=== PATIENT | female | born 1945 | race Caucasian/White ===

== ENCOUNTER 2017-11-23 13:52 | Outpatient (CLI) | payer OTHER ==
[~2017-11-23 13:52] MED LIST: CEFTIN250 MG PO; URIN D.S. TABLE1 TAB PO
== END 2017-11-23 13:57 | disposition home or self-care (01) ==
LOC: SONOGRAMA 13:52
DX: N63.13 Unspecified lump in the right breast, lower outer quadrant (principal); N60.11 Diffuse cystic mastopathy of right breast; N60.12 Diffuse cystic mastopathy of left breast

== ENCOUNTER 2017-12-01 13:57 | Outpatient (CLI) | payer OTHER | END 2017-12-01 14:14 | disposition home or self-care (01) | LOC: LAB 13:57 | DX: N60.11 Diffuse cystic mastopathy of right breast (principal); N60.12 Diffuse cystic mastopathy of left breast; Z80.3 Family history of malignant neoplasm of breast ==

== ENCOUNTER 2018-05-12 09:05 | Emergency (ER) | payer OTHER ==
[~2018-05-12] VITALS: Ht 160 cm; Wt 61.2 kg
== END 2018-05-12 12:41 | disposition home or self-care (01) ==
LOC: ER 09:05
DX: G89.11 Acute pain due to trauma (principal); M54.5 Low back pain; M79.675 Pain in left toe(s); M25.561 Pain in right knee

== ENCOUNTER 2018-05-17 14:07 | Outpatient (CLI) | payer OTHER | END 2018-05-17 14:23 | disposition home or self-care (01) | LOC: LAB 14:07 | DX: I10 Essential (primary) hypertension (principal); E11.9 Type 2 diabetes mellitus without complications; E03.8 Other specified hypothyroidism; E78.2 Mixed hyperlipidemia ==

== ENCOUNTER 2018-05-27 15:28 | Outpatient (CLI) | payer OTHER | END 2018-05-27 15:32 | disposition home or self-care (01) | LOC: LAB 15:28 | DX: N39.0 Urinary tract infection, site not specified (principal); R82.79 Other abnormal findings on microbiological examination of urine ==

== ENCOUNTER 2018-06-24 10:46 | Outpatient (CLI) | payer OTHER | END 2018-06-24 11:00 | disposition home or self-care (01) | LOC: NUCLEAR 10:46 | DX: M81.0 Age-related osteoporosis without current pathological fracture (principal) ==

== ENCOUNTER 2018-06-24 12:27 | Outpatient (CLI) | payer OTHER | END 2018-06-24 12:33 | disposition home or self-care (01) | LOC: RAD 12:27 | DX: M19.021 Primary osteoarthritis, right elbow (principal); M19.022 Primary osteoarthritis, left elbow ==

== ENCOUNTER 2018-11-04 15:01 | Outpatient (CLI) | payer OTHER | END 2018-11-04 15:05 | disposition home or self-care (01) | LOC: MAMO-SONO 15:01 | DX: Z12.31 Encounter for screening mammogram for malignant neoplasm of breast (principal); Z87.898 Personal history of other specified conditions; N62 Hypertrophy of breast; R10.9 Unspecified abdominal pain; M12.9 Arthropathy, unspecified; M19.90 Unspecified osteoarthritis, unspecified site ==

== ENCOUNTER 2018-11-04 18:19 | Outpatient (CLI) | payer OTHER | END 2018-11-04 18:24 | disposition home or self-care (01) | LOC: LAB 18:19 | DX: I10 Essential (primary) hypertension (principal); E11.9 Type 2 diabetes mellitus without complications; E03.8 Other specified hypothyroidism; E78.2 Mixed hyperlipidemia; K92.1 Melena; D64.0 Hereditary sideroblastic anemia; M81.0 Age-related osteoporosis without current pathological fracture ==

== ENCOUNTER 2018-11-05 15:32 | Outpatient (CLI) | payer OTHER | END 2018-11-05 15:49 | disposition home or self-care (01) | LOC: LAB 15:32 | DX: I10 Essential (primary) hypertension (principal); E11.9 Type 2 diabetes mellitus without complications; E03.8 Other specified hypothyroidism; E78.2 Mixed hyperlipidemia; K92.1 Melena; D64.0 Hereditary sideroblastic anemia; M81.0 Age-related osteoporosis without current pathological fracture ==

== ENCOUNTER 2019-05-02 15:26 | Emergency (ER) | payer OTHER ==
[~2019-05-02] VITALS: Ht 157.5 cm; Wt 104.3 kg
== END 2019-05-02 19:43 | disposition home or self-care (01) ==
LOC: ER 15:26
DX: R42 Dizziness and giddiness (principal)

== ENCOUNTER 2019-05-04 14:12 | Outpatient (CLI) | payer OTHER | END 2019-05-04 14:20 | disposition home or self-care (01) | LOC: RAD 14:12 | DX: M54.5 Low back pain (principal); M25.551 Pain in right hip; M25.552 Pain in left hip; M25.561 Pain in right knee ==

== ENCOUNTER 2019-06-08 09:35 | Outpatient (CLI) | payer OTHER | END 2019-06-08 09:39 | disposition home or self-care (01) | LOC: LAB 09:35 | DX: N18.9 Chronic kidney disease, unspecified (principal) ==

== ENCOUNTER 2019-07-29 05:02 | Day surgery (SDC) | payer OTHER | END 2019-07-29 17:41 | disposition home or self-care (01) | LOC: CIR.AMB 05:02 | DX: D05.11 Intraductal carcinoma in situ of right breast (principal) ==

== ENCOUNTER 2019-08-30 12:44 | Emergency (ER) | payer OTHER ==
[~2019-08-30] VITALS: Ht 162.6 cm; Wt 104.3 kg
== END 2019-08-30 21:36 | disposition home or self-care (01) ==
LOC: ER 12:44
DX: K52.89 Other specified noninfective gastroenteritis and colitis (principal)

== ENCOUNTER 2019-11-28 10:01 | Outpatient (CLI) | payer OTHER | END 2019-11-28 10:25 | disposition home or self-care (01) | LOC: NUCLEAR 10:01 | DX: C50.411 Malignant neoplasm of upper-outer quadrant of right female breast (principal); Z17.0 Estrogen receptor positive status [ER+] | CPT/HCPCS: 78816; A9552 ==

== ENCOUNTER 2019-12-30 10:59 | Outpatient (CLI) | payer OTHER | END 2019-12-30 11:06 | disposition home or self-care (01) | LOC: MRI 10:59 | DX: D25.9 Leiomyoma of uterus, unspecified (principal); C50.919 Malignant neoplasm of unspecified site of unspecified female breast | CPT/HCPCS: 72195 ==

== ENCOUNTER 2019-12-30 12:46 | Outpatient (CLI) | payer OTHER | END 2019-12-30 12:56 | disposition home or self-care (01) | LOC: LAB 12:46 | DX: D64.89 Other specified anemias (principal); Z12.11 Encounter for screening for malignant neoplasm of colon; E03.8 Other specified hypothyroidism; N95.1 Menopausal and female climacteric states; I10 Essential (primary) hypertension; C51.9 Malignant neoplasm of vulva, unspecified; A64 Unspecified sexually transmitted disease; N39.0 Urinary tract infection, site not specified; R97.8 Other abnormal tumor markers; R79.89 Other specified abnormal findings of blood chemistry; E55.9 Vitamin D deficiency, unspecified; C50.919 Malignant neoplasm of unspecified site of unspecified female breast ==

== ENCOUNTER 2020-07-31 08:27 | Outpatient (CLI) | payer OTHER | END 2020-07-31 08:29 | disposition home or self-care (01) | LOC: TOM 08:27 | PROVIDERS: ATTEND Internal Medicine Cardiovascular Disease | DX: N85.2 Hypertrophy of uterus (principal); K57.90 Diverticulosis of intestine, part unspecified, without perforation or abscess without bleeding; R10.84 Generalized abdominal pain ==

== ENCOUNTER → 2020-08-13 09:00 | Outpatient (CLI) | payer OTHER | END | disposition home or self-care (01) | LOC: LAB | PROVIDERS: ATTEND Internal Medicine Cardiovascular Disease | DX: I10 Essential (primary) hypertension (principal); E11.9 Type 2 diabetes mellitus without complications; E03.8 Other specified hypothyroidism; E78.2 Mixed hyperlipidemia; Z12.11 Encounter for screening for malignant neoplasm of colon; E55.9 Vitamin D deficiency, unspecified ==

== ENCOUNTER → 2020-08-13 | Outpatient (CLI) | payer OTHER | END | disposition home or self-care (01) | LOC: MAMO-SONO 08-06 09:15 | PROVIDERS: ATTEND Internal Medicine Cardiovascular Disease | DX: Z12.31 Encounter for screening mammogram for malignant neoplasm of breast (principal); N64.59 Other signs and symptoms in breast ==

== ENCOUNTER → 2020-08-13 | Outpatient (CLI) | payer OTHER | END | disposition home or self-care (01) | LOC: NUCLEAR 10:42 | PROVIDERS: ATTEND Internal Medicine Cardiovascular Disease | DX: M81.0 Age-related osteoporosis without current pathological fracture (principal) ==

== ENCOUNTER 2020-12-21 09:10 | Outpatient (CLI) | payer OTHER | END 2020-12-21 09:15 | disposition home or self-care (01) | LOC: LAB 09:10 | PROVIDERS: ATTEND Internal Medicine Hematology & Oncology | DX: D64.89 Other specified anemias (principal); R74.01 Elevation of levels of liver transaminase levels; E78.00 Pure hypercholesterolemia, unspecified; C50.411 Malignant neoplasm of upper-outer quadrant of right female breast ==

== ENCOUNTER → 2020-12-21 | Outpatient (CLI) | payer OTHER | END | disposition home or self-care (01) | LOC: PPH VACUNA 15:00 | PROVIDERS: ATTEND Emergency Medicine Pediatric Emergency Medicine | DX: Z23 Encounter for immunization (principal) ==

== ENCOUNTER 2021-01-11 12:22 | Outpatient (CLI) | payer OTHER | END 2021-01-11 12:56 | disposition home or self-care (01) | LOC: LAB 12:22 | DX: I10 Essential (primary) hypertension (principal); E78.49 Other hyperlipidemia; E03.8 Other specified hypothyroidism; N30.00 Acute cystitis without hematuria; E83.51 Hypocalcemia; Z12.11 Encounter for screening for malignant neoplasm of colon; E06.3 Autoimmune thyroiditis; N95.8 Other specified menopausal and perimenopausal disorders; R97.8 Other abnormal tumor markers; Z11.3 Encounter for screening for infections with a predominantly sexual mode of transmission; A60.04 Herpesviral vulvovaginitis; R74.8 Abnormal levels of other serum enzymes; E22.1 Hyperprolactinemia; E28.2 Polycystic ovarian syndrome ==

== ENCOUNTER 2021-01-28 13:03 | Outpatient (CLI) | payer OTHER | END 2021-01-28 13:08 | disposition home or self-care (01) | LOC: RAD 13:03 | PROVIDERS: ATTEND Orthopaedic Surgery | DX: M25.562 Pain in left knee (principal); M25.561 Pain in right knee; M25.551 Pain in right hip; M25.552 Pain in left hip ==

== ENCOUNTER → 2021-04-25 08:00 | Outpatient (CLI) | payer OTHER ==
[~2021-04-25 08:00] MED LIST changes: +FEMARA2.5 MG
== END | disposition home or self-care (01) ==
LOC: LAB 04-10 07:53
PROVIDERS: ATTEND Internal Medicine Cardiovascular Disease
DX: E03.8 Other specified hypothyroidism (principal); I10 Essential (primary) hypertension; E11.9 Type 2 diabetes mellitus without complications; E78.2 Mixed hyperlipidemia; Z12.11 Encounter for screening for malignant neoplasm of colon; E55.9 Vitamin D deficiency, unspecified

== ENCOUNTER 2021-04-25 08:21 | Outpatient (CLI) | payer OTHER ==
[~2021-04-25 08:21] MED LIST changes: -FEMARA2.5 MG
== END 2021-04-25 08:28 | disposition home or self-care (01) ==
LOC: TOM 08:21
PROVIDERS: ATTEND Internal Medicine Cardiovascular Disease
DX: R41.2 Retrograde amnesia (principal); I63.50 Cerebral infarction due to unspecified occlusion or stenosis of unspecified cerebral artery

== ENCOUNTER 2021-06-27 07:50 | Emergency (ER) | payer OTHER ==
[~2021-06-27] VITALS: Ht 162.6 cm; Wt 104.3 kg
[2021-06-27] MEDS ORDERED: FEMARA2.5 MG (08:06)
== END 2021-06-27 14:46 | disposition home or self-care (01) ==
LOC: ER 07:50
DX: N13.2 Hydronephrosis with renal and ureteral calculous obstruction (principal); R10.32 Left lower quadrant pain; R10.12 Left upper quadrant pain

== ENCOUNTER 2021-11-01 09:18 | Outpatient (CLI) | payer OTHER ==
[~2021-11-01 09:18] MED LIST changes: +FEMARA2.5 MG
== END 2021-11-01 09:19 | disposition home or self-care (01) ==
LOC: LAB 09:18
PROVIDERS: ATTEND Internal Medicine Hematology & Oncology
DX: D64.89 Other specified anemias (principal); C50.411 Malignant neoplasm of upper-outer quadrant of right female breast; E78.89 Other lipoprotein metabolism disorders; M85.80 Other specified disorders of bone density and structure, unspecified site

== ENCOUNTER 2021-11-26 09:26 | Outpatient (CLI) | payer OTHER | END 2021-11-26 09:40 | disposition home or self-care (01) | LOC: MAMO-SONO 09:26 | PROVIDERS: ATTEND Internal Medicine Hematology & Oncology | DX: C50.411 Malignant neoplasm of upper-outer quadrant of right female breast (principal); Z17.0 Estrogen receptor positive status [ER+]; Z85.3 Personal history of malignant neoplasm of breast; Z12.31 Encounter for screening mammogram for malignant neoplasm of breast ==

== ENCOUNTER 2022-01-14 14:22 | Outpatient (CLI) | payer OTHER | END 2022-01-14 14:28 | disposition home or self-care (01) | LOC: LAB 14:22 | PROVIDERS: ATTEND Radiology Diagnostic Radiology | DX: R10.9 Unspecified abdominal pain (principal) ==

== ENCOUNTER 2022-02-03 08:46 | Outpatient (CLI) | payer OTHER | END 2022-02-03 08:49 | disposition home or self-care (01) | LOC: TOM 08:46 | PROVIDERS: ATTEND Internal Medicine Cardiovascular Disease | DX: R10.9 Unspecified abdominal pain (principal) | CPT/HCPCS: 74177; Q9965 ==

== ENCOUNTER 2022-02-03 12:13 | Outpatient (CLI) | payer OTHER | END 2022-02-03 12:14 | disposition home or self-care (01) | LOC: LAB 12:13 | PROVIDERS: ATTEND Internal Medicine Cardiovascular Disease | DX: I10 Essential (primary) hypertension (principal); E11.9 Type 2 diabetes mellitus without complications; E03.9 Hypothyroidism, unspecified; E78.2 Mixed hyperlipidemia; Z12.11 Encounter for screening for malignant neoplasm of colon; E55.9 Vitamin D deficiency, unspecified ==

== ENCOUNTER 2022-02-05 08:50 | Outpatient (CLI) | payer OTHER | END 2022-02-05 08:53 | disposition home or self-care (01) | LOC: LAB 08:50 | PROVIDERS: ATTEND Internal Medicine Cardiovascular Disease | DX: E11.9 Type 2 diabetes mellitus without complications (principal); I10 Essential (primary) hypertension; E03.9 Hypothyroidism, unspecified; E78.2 Mixed hyperlipidemia; Z12.11 Encounter for screening for malignant neoplasm of colon; E55.9 Vitamin D deficiency, unspecified ==

== ENCOUNTER 2022-02-24 10:14 | Outpatient (CLI) | payer OTHER | END 2022-02-24 10:21 | disposition home or self-care (01) | LOC: LAB 10:14 | PROVIDERS: ATTEND Internal Medicine Cardiovascular Disease | DX: C34.10 Malignant neoplasm of upper lobe, unspecified bronchus or lung (principal); D49.59 Neoplasm of unspecified behavior of other genitourinary organ ==

== ENCOUNTER 2022-08-12 11:15 | Emergency (ER) | payer OTHER ==
[~2022-08-12] VITALS: Ht 162.6 cm; Wt 97.5 kg
[2022-08-12] MEDS ORDERED: COZAAR25 MG (11:37)
== END 2022-08-12 17:40 | disposition home or self-care (01) ==
LOC: ER 11:15
DX: S42.302A Unspecified fracture of shaft of humerus, left arm, initial encounter for closed fracture (principal); W18.30XA Fall on same level, unspecified, initial encounter; Y93.9 Activity, unspecified; Y92.239 Unspecified place in hospital as the place of occurrence of the external cause

== ENCOUNTER 2022-09-04 08:58 | Outpatient (CLI) | payer OTHER ==
[~2022-09-04 08:58] MED LIST changes: +COZAAR25 MG
== END 2022-09-04 09:10 | disposition home or self-care (01) ==
LOC: RAD 08:58
PROVIDERS: ATTEND Orthopaedic Surgery
DX: S42.222A 2-part displaced fracture of surgical neck of left humerus, initial encounter for closed fracture (principal); M25.561 Pain in right knee; M25.562 Pain in left knee

== ENCOUNTER → 2023-06-03 07:56 | Outpatient (CLI) | payer OTHER | END | disposition home or self-care (01) | LOC: LAB 07:56 | PROVIDERS: ATTEND Obstetrics & Gynecology Obstetrics | DX: N80.30 Endometriosis of pelvic peritoneum, unspecified (principal); I10 Essential (primary) hypertension; E03.9 Hypothyroidism, unspecified; E78.2 Mixed hyperlipidemia; N95.1 Menopausal and female climacteric states; N92.6 Irregular menstruation, unspecified; E55.9 Vitamin D deficiency, unspecified; Z01.818 Encounter for other preprocedural examination ==

== ENCOUNTER → 2023-06-30 09:15 | Outpatient (CLI) | payer OTHER | END | disposition home or self-care (01) | LOC: LAB 09:15 | PROVIDERS: ATTEND Internal Medicine Cardiovascular Disease | DX: E03.9 Hypothyroidism, unspecified (principal); E78.2 Mixed hyperlipidemia; I10 Essential (primary) hypertension; E11.9 Type 2 diabetes mellitus without complications; Z12.11 Encounter for screening for malignant neoplasm of colon ==

== ENCOUNTER → 2023-07-01 09:33 | Outpatient (CLI) | payer OTHER | END | disposition home or self-care (01) | LOC: LAB 09:33 | PROVIDERS: ATTEND Internal Medicine Cardiovascular Disease | DX: I10 Essential (primary) hypertension (principal); E11.9 Type 2 diabetes mellitus without complications; E03.9 Hypothyroidism, unspecified; E78.2 Mixed hyperlipidemia; Z12.11 Encounter for screening for malignant neoplasm of colon ==

== ENCOUNTER 2023-07-27 18:25 | Emergency (ER) | payer OTHER ==
[~2023-07-27] VITALS: Ht 162.6 cm; Wt 99.8 kg
[2023-07-27 19:46] LABS: HEMATOCRIT 31.1 % (36.0-45.00); HEMOGLOBIN 10.3 g/dL (12.0-15.00); MEAN CORPUSCULAR HEMOGLOBIN 29.8 pg (27.00-32.0); MEAN CORPUSCULAR HGB CONC 33.1 g/dl (32.0-36.0); PLATELET COUNT 333 K/uL (150-450); RED BLOOD COUNT 3.46 M/uL (4.00-6.00); RED CELL DISTRIBUTION WIDTH 13.6 % (11.5-14.5)
[2023-07-27] MEDS ORDERED: MUPIROCIN15 GM TOP (20:26)
== END 2023-07-27 21:12 | disposition home or self-care (01) ==
LOC: ER 18:25
PROVIDERS: Nurse Practitioner Family
DX: N63.10 Unspecified lump in the right breast, unspecified quadrant (principal); Z85.3 Personal history of malignant neoplasm of breast; I10 Essential (primary) hypertension

== ENCOUNTER 2024-01-21 20:39 | Emergency (ER) | payer OTHER ==
[~2024-01-21] VITALS: Ht 172.7 cm; Wt 95.3 kg
[~2024-01-21 20:39] MED LIST changes: +MUPIROCIN15 GM TOP
== END 2024-01-21 21:56 | disposition home or self-care (01) ==
LOC: ER 20:39
DX: S20.01XA Contusion of right breast, initial encounter (principal); X58.XXXA Exposure to other specified factors, initial encounter; Y93.9 Activity, unspecified; Y92.89 Other specified places as the place of occurrence of the external cause; Y99.9 Unspecified external cause status; Z85.3 Personal history of malignant neoplasm of breast

== ENCOUNTER 2024-04-08 12:01 | Inpatient (IN) | payer OTHER ==
[~2024-04-08] VITALS: Ht 121.9 cm; Wt 70.3 kg
[2024-04-08] MEDS ORDERED: 0.9 % SODIUM CHLORIDE 1,000 ML IV STA (13:35)
[2024-04-08] MEDS ORDERED: MEPERIDINE HCL/PF 50 MG/ML VIAL IM STA (13:36)
[2024-04-08] MEDS ORDERED: PROMETHAZINE HCL 50 MG/ML AMPUL IM STA (13:37)
[2024-04-08 14:37] LABS: MEAN CELL VOLUME 82.9 fL (80.00-100.00); MEAN CORPUSCULAR HGB CONC 33.2 g/dl (32.0-36.0); RED BLOOD COUNT 2.43 M/uL (4.00-6.00); RED CELL DISTRIBUTION WIDTH 15.5 % (11.5-14.5)
[2024-04-08 14:39] LABS: HEMATOCRIT 20.1 % (36.0-45.00); HEMOGLOBIN 6.7 g/dL (12.0-15.00); MEAN CORPUSCULAR HEMOGLOBIN 27.5 pg (27.00-32.0)
[2024-04-08 14:40] LABS: PLATELET COUNT 481 K/uL (150-450)
[2024-04-08 14:52] LABS: ALBUMIN 3.3 gm/dL (3.4-5.0); ALKALINE PHOSPHATASE 65 U/L (50-136); ALT/SGPT 17 U/L (12-78); ANION GAP 7 (10.0-20.0); AST/SGOT 42 U/L (15-37); BILIRUBIN TOTAL 0.39 mg/dL (0.3-1.2); BLOOD UREA NITROGEN 16 mg/dL (7-18); BUN CREA RATIO 19 (7.0-25.0); CALCIUM 9.1 mg/dL (8.5-10.1); CARBON DIOXIDE 27 mEq/L (21-32); CHLORIDE 109 mmol/L (98-107); CREATININE SERUM 0.85 mg/dL (0.55-1.02); GFR 64.85; GLUCOSE FASTING 92 mg/dL (65-100); OSMOLALITY SERUM 278 MOSM/KG (275-295); POTASSIUM 4.34 mEq/L (3.5-5.1); SODIUM 139 mmol/L (136-145); TOTAL PROTEIN 7.3 gm/dL (6.4-8.2)
[2024-04-08 15:06] LABS: BILIRUBIN,CONJUGATED < 0.10 mg/dL (0.0-0.2); BILIRUBIN,UNCONJUGATED 0.29 mg/dL (0.0-0.6)
[2024-04-08] MEDS ORDERED: ACETAMINOPHEN 500 MG GEL..CAP PO PRN (17:45)
[2024-04-08] MEDS ORDERED: CEFTRIAXONE SODIUM 2,000 MG in 0.9 % SODIUM CHLORIDE 100 ML IV SCH (17:45)
[2024-04-08] MEDS ORDERED: ORPHENADRINE CITRATE 30 MG/ML AMPUL IM ONE (17:45)
[2024-04-08] MEDS ORDERED: 0.9 % SODIUM CHLORIDE 1,000 ML IV SCH (17:45)
[2024-04-08] MEDS ORDERED: GABAPENTIN 300 MG CAPSULE PO SCH (17:57)
[2024-04-08] MEDS ORDERED: ONDANSETRON HCL 4 MG in 0.9 % SODIUM CHLORIDE 50 ML IV PRN (18:00)
[2024-04-08 19:39] LABS: INR 0.99; PARTIAL THROMBOPLASTIN TIME 21.1 SECONDS (22.0-34.0); PROTHROMBIN TIME 10.4 SECONDS (9.0-11.5)
[2024-04-09] MEDS ORDERED: LOSARTAN POTASSIUM 25 MG TABLET PO SCH (09:00)
[2024-04-09] MEDS ORDERED: FAMOTIDINE/PF 20 MG in 0.9 % SODIUM CHLORIDE 8 ML IV PUSH SCH (09:00)
[2024-04-09 09:23] LABS: URINE APPEARANCE Cloudy; URINE BILIRRUBIN Negative (NEGATIVE); URINE BLOOD Negative; URINE COLOR Yellow; URINE GLUCOSE Negative (NEGATIVE); URINE LEUKOCYTE Small; URINE NITRATE Negative; URINE PROTEIN Negative (NEGATIVE); URINE UROBILINOGEN 0.2 E.U./dl
[2024-04-09 09:29] LABS: URINE EPITHELIAL CELLS 104.6 uL (0.0-38.8)
[2024-04-09 10:59] LABS: URINE EPITHELIAL CELLS 0-4 /HPF
[2024-04-11 06:44] LABS: HEMATOCRIT 28.8 % (36.0-45.00); MEAN CORPUSCULAR HGB CONC 33.9 g/dl (32.0-36.0); PLATELET COUNT 361 K/uL (150-450); RED BLOOD COUNT 3.47 M/uL (4.00-6.00); RED CELL DISTRIBUTION WIDTH 15.3 % (11.5-14.5)
[2024-04-11 06:47] LABS: MEAN CORPUSCULAR HEMOGLOBIN 28.2 pg (27.00-32.0)
[2024-04-11 06:48] LABS: HEMOGLOBIN 9.8 g/dL (12.0-15.00)
[2024-04-11] MEDS ORDERED: FAMOtidine 20 MG TABLET PO SCH (21:00)
[2024-04-12] MEDS ORDERED: KETOROLAC TROMETHAMINE 30 MG VIAL IM PRN (08:15)
[2024-04-12] MEDS ORDERED: KETOROLAC TROMETHAMINE 30 MG VIAL IM STA (09:11)
[2024-04-12] MEDS ORDERED: TRAMADOL HCL 50 MG TABLET PO SCH (21:00)
[2024-04-13 06:56] LABS: HEMATOCRIT 26.3 % (36.0-45.00); MEAN CELL VOLUME 83.4 fL (80.00-100.00); MEAN CORPUSCULAR HGB CONC 33.9 g/dl (32.0-36.0); PLATELET COUNT 304 K/uL (150-450); RED BLOOD COUNT 3.15 M/uL (4.00-6.00); RED CELL DISTRIBUTION WIDTH 15.2 % (11.5-14.5)
[2024-04-13 07:06] LABS: HEMOGLOBIN 8.9 g/dL (12.0-15.00); MEAN CORPUSCULAR HEMOGLOBIN 28.2 pg (27.00-32.0)
[2024-04-13] MEDS ORDERED: IRON/V.C/V.B12/FOLIC A/VIT. E 1 CAPL CAPLET PO SCH (09:00)
== END 2024-04-13 14:52 | disposition home or self-care (01) | DRG 598 ==
LOC: ER 12:01 → SURG 18:04 → SEC-K 18:04 → MEDJ 18:47 → SEC-K 20:10 → MEDJ 04-09 00:29 → SEC-K 04-09 00:52 → MEDJ 04-09 00:58 → SURG 04-09 01:15
PROVIDERS: General Practice; ADMIT Internal Medicine; ATTEND Internal Medicine
PROC: 30233N1 Transfusion of Nonautologous Red Blood Cells into Peripheral Vein, Percutaneous Approach (ICD-10-PCS; principal; 2024-04-08)
PROC: BW21ZZZ Computerized Tomography (CT Scan) of Abdomen and Pelvis (ICD-10-PCS; 2024-04-08)
PROC: BW24ZZZ Computerized Tomography (CT Scan) of Chest and Abdomen (ICD-10-PCS; 2024-04-08)
PROC: BR39YZZ Magnetic Resonance Imaging (MRI) of Lumbar Spine using Other Contrast (ICD-10-PCS; 2024-04-11)
PROC: BR37ZZZ Magnetic Resonance Imaging (MRI) of Thoracic Spine (ICD-10-PCS; 2024-04-11)
DX: C50.911 Malignant neoplasm of unspecified site of right female breast (principal); C77.3 Secondary and unspecified malignant neoplasm of axilla and upper limb lymph nodes; D62 Acute posthemorrhagic anemia; G89.3 Neoplasm related pain (acute) (chronic); K44.9 Diaphragmatic hernia without obstruction or gangrene; E78.5 Hyperlipidemia, unspecified; I10 Essential (primary) hypertension; D63.0 Anemia in neoplastic disease; B96.5 Pseudomonas (aeruginosa) (mallei) (pseudomallei) as the cause of diseases classified elsewhere; B95.61 Methicillin susceptible Staphylococcus aureus infection as the cause of diseases classified elsewhere
CPT/HCPCS: 72147; 72149

== ENCOUNTER 2024-05-10 12:12 | Outpatient (CLI) | payer OTHER ==
[2024-05-12 09:13] LABS: CA 15-3 14.9 U/mL (0.0-25.0); CA 27.29 17.2 U/mL (0.0-38.6)
== END 2024-05-10 12:15 | disposition home or self-care (01) ==
LOC: LAB 12:12
PROVIDERS: ATTEND Internal Medicine Hematology & Oncology
DX: C50.811 Malignant neoplasm of overlapping sites of right female breast (principal); Z17.0 Estrogen receptor positive status [ER+]

== ENCOUNTER 2024-07-20 22:10 | Inpatient (IN) | payer OTHER ==
[~2024-07-20] VITALS: Ht 162.6 cm; Wt 68.0 kg
[2024-07-20] MEDS ORDERED: LOSARTAN-HCTZ1 EACH PO (22:23)
[2024-07-20] MEDS ORDERED: PANTOPRAZOLE SODIUM 40 MG/VIAL VIAL IV SCH (22:29)
[2024-07-20] MEDS ORDERED: ONDANSETRON HCL 4 MG in 0.9 % SODIUM CHLORIDE 50 ML IV PRN (22:30)
[2024-07-20] MEDS ORDERED: 0.9 % SODIUM CHLORIDE 1,000 ML IV SCH ×2 (22:30)
[2024-07-20] MEDS ORDERED: ACETAMINOPHEN 500 MG GEL..CAP PO PRN (22:30)
[2024-07-20] MEDS ORDERED: FUROsemide 20 MG/2 ML VIAL IV SCH (22:30)
[2024-07-20 23:19] LABS: HEMATOCRIT 23.9 % (36.0-45.00); MEAN CELL VOLUME 80.8 fL (80.00-100.00); MEAN CORPUSCULAR HGB CONC 33.4 g/dl (32.0-36.0); PLATELET COUNT 502 K/uL (150-450); RED BLOOD COUNT 2.95 M/uL (4.00-6.00); RED CELL DISTRIBUTION WIDTH 17.5 % (11.5-14.5)
[2024-07-20 23:22] LABS: MEAN CORPUSCULAR HEMOGLOBIN 27.1 pg (27.00-32.0)
[2024-07-20 23:32] LABS: ALBUMIN 3.1 gm/dL (3.4-5.0); BILIRUBIN TOTAL 0.85 mg/dL (0.3-1.2); CALCIUM 8.5 mg/dL (8.5-10.1); CREATININE SERUM 0.65 mg/dL (0.55-1.02); GFR 88.38; GLOBULINA 4.2 G/DL (2.4-3.5); POTASSIUM 3.75 mEq/L (3.5-5.1); TOTAL PROTEIN 7.3 gm/dL (6.4-8.2)
[2024-07-20 23:39] LABS: INR 1.01; PARTIAL THROMBOPLASTIN TIME 21.9 SECONDS (22.0-34.0)
[2024-07-21 00:13] LABS: PH,URINE 5.5 (5.0-8.0); URINE APPEARANCE Clear; URINE BILIRRUBIN Negative (NEGATIVE); URINE BLOOD Negative; URINE COLOR Yellow; URINE GLUCOSE Negative (NEGATIVE); URINE KETONE 15 (NEGATIVE); URINE LEUKOCYTE Negative; URINE NITRATE Negative; URINE PROTEIN Negative (NEGATIVE); URINE UROBILINOGEN 0.2 E.U./dl
[2024-07-21 00:17] LABS: URINE BACTERIA 100.7 uL (0.0-1933); URINE CAST 1.98 uL (0.0-1.40); URINE EPITHELIAL CELLS 28.5 uL (0.0-38.8); URINE RBC 2.2 uL (0.0-20.8); URINE WBC 20.5 uL (0.0-23.2)
[2024-07-21 04:58] VITALS: BP 116/56
[2024-07-21 08:49] VITALS: BP 124/72; O2SAT 99
[2024-07-21] MEDS ORDERED: PIPERACILLIN/TAZOBACTAM SODIUM 3.375 GM in DEXTROSE 5 % IN WATER 100 ML IV SCH (14:00)
[2024-07-21 17:12] VITALS: BP 131/71; O2SAT 97
[2024-07-21 18:49] LABS: RED BLOOD COUNT 3.66 M/uL (4.00-6.00)
[2024-07-21 18:53] LABS: HEMATOCRIT 30.3 % (36.0-45.00); HEMOGLOBIN 10.1 g/dL (12.0-15.00); MEAN CELL VOLUME 82.9 fL (80.00-100.00); MEAN CORPUSCULAR HEMOGLOBIN 27.6 pg (27.00-32.0); MEAN CORPUSCULAR HGB CONC 33.3 g/dl (32.0-36.0); PLATELET COUNT 485 K/uL (150-450); RED CELL DISTRIBUTION WIDTH 17.2 % (11.5-14.5)
[2024-07-21] MEDS ORDERED: VANCOMYCIN HCL 1,000 MG in 0.9 % SODIUM CHLORIDE 250 ML IV SCH (21:00)
[2024-07-22 00:31] VITALS: BP 123/72
[2024-07-22 08:16] VITALS: BP 143/74; O2SAT 98
[2024-07-22 18:03] VITALS: BP 114/56
[2024-07-23 00:41] VITALS: BP 104/63; O2SAT 99
[2024-07-23 08:35] VITALS: BP 130/60
[2024-07-23] MEDS ORDERED: VANCOMYCIN HCL 1,000 MG in 0.9 % SODIUM CHLORIDE 250 ML IV SCH (09:00)
[2024-07-23 17:29] VITALS: BP 150/79
[2024-07-24 00:34] VITALS: BP 136/66; O2SAT 98
[2024-07-24 09:15] VITALS: BP 168/86
[2024-07-24 18:02] VITALS: BP 161/70
[2024-07-25 02:16] VITALS: BP 130/74; O2SAT 97
[2024-07-25 09:22] VITALS: BP 153/86; O2SAT 98
[2024-07-25 17:43] VITALS: BP 133/66; O2SAT 97
== END 2024-07-25 23:21 | disposition home or self-care (01) | DRG 600 ==
LOC: ER 22:10 → MEDI 22:32 → MEDJ 07-22 14:45
PROVIDERS: General Practice; ADMIT Internal Medicine; ATTEND Internal Medicine
PROC: 30233N1 Transfusion of Nonautologous Red Blood Cells into Peripheral Vein, Percutaneous Approach (ICD-10-PCS; principal; 2024-07-21)
DX: N64.59 Other signs and symptoms in breast (principal); C77.3 Secondary and unspecified malignant neoplasm of axilla and upper limb lymph nodes; C50.911 Malignant neoplasm of unspecified site of right female breast; D63.0 Anemia in neoplastic disease; I10 Essential (primary) hypertension

== ENCOUNTER 2024-07-29 07:40 | Emergency (ER) | payer OTHER ==
[~2024-07-29] VITALS: Ht 162.6 cm; Wt 77.1 kg
[~2024-07-29 07:40] MED LIST changes: +LOSARTAN-HCTZ1 EACH PO
[2024-07-29 09:54] LABS: HEMATOCRIT 28.6 % (36.0-45.00); HEMOGLOBIN 9.5 g/dL (12.0-15.00); MEAN CORPUSCULAR HEMOGLOBIN 27.5 pg (27.00-32.0); MEAN CORPUSCULAR HGB CONC 33.2 g/dl (32.0-36.0); PLATELET COUNT 327 K/uL (150-450); RED BLOOD COUNT 3.45 M/uL (4.00-6.00); RED CELL DISTRIBUTION WIDTH 18.8 % (11.5-14.5)
== END 2024-07-29 12:02 | disposition home or self-care (01) ==
LOC: ER 07:40
PROVIDERS: Emergency Medicine
DX: M25.59 Pain in other specified joint (principal); Z88.6 Allergy status to analgesic agent; I10 Essential (primary) hypertension; Z85.3 Personal history of malignant neoplasm of breast; W18.39XA Other fall on same level, initial encounter; Y93.89 Activity, other specified; Y92.89 Other specified places as the place of occurrence of the external cause

== ENCOUNTER 2024-08-03 07:38 | Outpatient (CLI) | payer OTHER ==
[2024-08-03 08:46] LABS: HEMATOCRIT 29.9 % (36.0-45.00); HEMOGLOBIN 9.9 g/dL (12.0-15.00); MEAN CELL VOLUME 82.1 fL (80.00-100.00); MEAN CORPUSCULAR HEMOGLOBIN 27.1 pg (27.00-32.0); PLATELET COUNT 437 K/uL (150-450); RED BLOOD COUNT 3.64 M/uL (4.00-6.00); RED CELL DISTRIBUTION WIDTH 19.5 % (11.5-14.5)
[2024-08-03 09:25] LABS: CALCIUM 9.4 mg/dL (8.5-10.1); CHOL HDL RATIO 2.6 (0-5.0); CREATININE SERUM 0.88 mg/dL (0.55-1.02); GFR 62.31; POTASSIUM 4.25 mEq/L (3.5-5.1); T4 TOTAL 9.48 UG/DL (4.8-13.9); TSH 1.41 uIU/mL (0.358-3.74)
[2024-08-03 13:47] LABS: URINE APPEARANCE Cloudy; URINE BILIRRUBIN Negative (NEGATIVE); URINE BLOOD Negative; URINE COLOR Yellow; URINE GLUCOSE Negative (NEGATIVE); URINE KETONE Trace (NEGATIVE); URINE LEUKOCYTE Moderate; URINE NITRATE Negative; URINE PROTEIN Trace (NEGATIVE)
[2024-08-03 13:48] LABS: URINE BACTERIA 1540.9 uL (0.0-1933); URINE CAST 11.29 uL (0.0-1.40); URINE EPITHELIAL CELLS 69.2 uL (0.0-38.8); URINE WBC 505.5 uL (0.0-23.2)
[2024-08-03 14:59] LABS: URINE CRYSTALS FEW /HPF
[2024-08-03 15:00] LABS: URINE MUCUS HEAVY
== END 2024-08-03 07:41 | disposition home or self-care (01) ==
LOC: LAB 07:38
PROVIDERS: ATTEND Internal Medicine Cardiovascular Disease
DX: E11.9 Type 2 diabetes mellitus without complications (principal); I10 Essential (primary) hypertension; E03.9 Hypothyroidism, unspecified; E78.2 Mixed hyperlipidemia

== ENCOUNTER 2024-08-11 10:51 | Emergency (ER) | payer OTHER ==
[~2024-08-11] VITALS: Ht 160 cm; Wt 68.0 kg
[2024-08-11 11:26] VITALS: BP 120/70; O2SAT 100
[2024-08-11] MEDS ORDERED: CEFTRIAXONE SODIUM 1,000 MG VIAL IV ONE (12:45)
[2024-08-11 12:54] LABS: HEMATOCRIT 28.2 % (36.0-45.00); HEMOGLOBIN 9.4 g/dL (12.0-15.00); MEAN CELL VOLUME 81.6 fL (80.00-100.00); MEAN CORPUSCULAR HEMOGLOBIN 27.3 pg (27.00-32.0); MEAN CORPUSCULAR HGB CONC 33.5 g/dl (32.0-36.0); PLATELET COUNT 437 K/uL (150-450); RED BLOOD COUNT 3.45 M/uL (4.00-6.00); RED CELL DISTRIBUTION WIDTH 19.6 % (11.5-14.5)
== END 2024-08-11 14:51 | disposition home or self-care (01) ==
LOC: ER 10:51
PROVIDERS: Emergency Medicine
DX: C50.919 Malignant neoplasm of unspecified site of unspecified female breast (principal); I10 Essential (primary) hypertension; Z88.6 Allergy status to analgesic agent
CPT/HCPCS: 36415; 96365; 99282; J0696

== ENCOUNTER → 2024-09-28 08:01 | Outpatient (CLI) | payer OTHER | END | disposition home or self-care (01) | LOC: NUCLEAR 08:01 | PROVIDERS: ATTEND Internal Medicine Hematology & Oncology | DX: C50.811 Malignant neoplasm of overlapping sites of right female breast (principal); C77.2 Secondary and unspecified malignant neoplasm of intra-abdominal lymph nodes | CPT/HCPCS: 78815; A9552 ==

== ENCOUNTER 2024-10-14 18:15 | Inpatient (IN) | payer OTHER ==
[~2024-10-14] VITALS: Ht 162.6 cm; Wt 73.5 kg
[2024-10-14] MEDS ORDERED: AMINOCAPROIC ACID 20 MG/ML ML IV ONE (22:00)
[2024-10-14] MEDS ORDERED: AMINOCAPROIC ACID 250 MG/ML VIAL IV ONE (23:45)
[2024-10-15 00:06] LABS: HEMATOCRIT 28.8 % (36.0-45.00); HEMOGLOBIN 9.5 g/dL (12.0-15.00); MEAN CELL VOLUME 85.8 fL (80.00-100.00); MEAN CORPUSCULAR HEMOGLOBIN 28.1 pg (27.00-32.0); MEAN CORPUSCULAR HGB CONC 32.8 g/dl (32.0-36.0); PLATELET COUNT 384 K/uL (150-450); RED BLOOD COUNT 3.36 M/uL (4.00-6.00); RED CELL DISTRIBUTION WIDTH 19.7 % (11.5-14.5)
[2024-10-15 00:13] LABS: PARTIAL THROMBOPLASTIN TIME 23.5 SECONDS (22.0-34.0); PROTHROMBIN TIME 10.9 SECONDS (9.0-11.5)
[2024-10-15 00:18] LABS: ALBUMIN 3.1 gm/dL (3.4-5.0); BILIRUBIN TOTAL 0.37 mg/dL (0.3-1.2); CALCIUM 9.1 mg/dL (8.5-10.1); CREATININE SERUM 0.79 mg/dL (0.55-1.02); GFR 70.57; GLOBULINA 4.4 G/DL (2.4-3.5); POTASSIUM 3.79 mEq/L (3.5-5.1); TOTAL PROTEIN 7.5 gm/dL (6.4-8.2)
[2024-10-15 04:50] LABS: URINE APPEARANCE Clear; URINE BILIRRUBIN Negative (NEGATIVE); URINE BLOOD Negative; URINE COLOR Yellow; URINE GLUCOSE Negative (NEGATIVE); URINE KETONE Negative (NEGATIVE); URINE LEUKOCYTE Negative; URINE NITRATE Negative; URINE PROTEIN Negative (NEGATIVE)
[2024-10-15 04:53] LABS: URINE BACTERIA 37.9 uL (0.0-1933); URINE EPITHELIAL CELLS 2.3 uL (0.0-38.8); URINE WBC 20.9 uL (0.0-23.2)
[2024-10-15 04:55] LABS: URINE RBC 1.1 uL (0.0-20.8)
[2024-10-15] MEDS ORDERED: CEFTRIAXONE SODIUM 1,000 MG VIAL IV STA (13:42)
[2024-10-15] MEDS ORDERED: 0.9 % SODIUM CHLORIDE 1,000 ML IV SCH (13:45)
[2024-10-15] MEDS ORDERED: ENALAPRILAT DIHYDRATE 1.25 MG/ML VIAL IV PRN (13:45)
[2024-10-15] MEDS ORDERED: ACETAMINOPHEN 325 MG TABLET PO PRN (13:45)
[2024-10-15] MEDS ORDERED: FUROsemide 20 MG/2 ML VIAL IV SCH (13:45)
[2024-10-15 16:30] VITALS: BP 108/60; O2SAT 97
[2024-10-15] MEDS ORDERED: FAMOtidine 20 MG TABLET PO SCH (17:00)
[2024-10-15] MEDS ORDERED: AMINOCAPROIC ACID 250 MG/ML VIAL IV SCH (17:00)
[2024-10-15 18:54] VITALS: BP 120/80
[2024-10-15] MEDS ORDERED: TEMAZEPAM 15 MG CAPSULE PO SCH (21:00)
[2024-10-15] MEDS ORDERED: CEFTRIAXONE SODIUM 1,000 MG VIAL IV SCH (21:00)
[2024-10-16 02:32] VITALS: BP 132/72; O2SAT 95
[2024-10-16 09:58] VITALS: BP 126/76; O2SAT 97
[2024-10-16] MEDS ORDERED: AMINOCAPROIC ACID 20 MG/ML ML IV SCH (17:00)
[2024-10-16 17:02] VITALS: BP 157/80; O2SAT 98
[2024-10-18 06:36] LABS: HEMATOCRIT 31.4 % (36.0-45.00); HEMOGLOBIN 10.6 g/dL (12.0-15.00); MEAN CELL VOLUME 87.2 fL (80.00-100.00); MEAN CORPUSCULAR HEMOGLOBIN 29.4 pg (27.00-32.0); MEAN CORPUSCULAR HGB CONC 33.7 g/dl (32.0-36.0); PLATELET COUNT 298 K/uL (150-450); RED CELL DISTRIBUTION WIDTH 17.5 % (11.5-14.5)
[2024-10-18] MEDS ORDERED: OXYBUTYNIN CHLORIDE 5 MG TABLET PO SCH (17:33)
[2024-10-18] MEDS ORDERED: SOD FERRIC GLUC COMPLX/SUCROSE 125 MG in 0.9 % SODIUM CHLORIDE 100 ML IV SCH (17:33)
[2024-10-18 17:43] VITALS: BP 140/77; O2SAT 96
[2024-10-19 01:05] VITALS: BP 135/75; O2SAT 96
[2024-10-19 08:49] VITALS: BP 141/87; O2SAT 98
[2024-10-19 18:05] VITALS: BP 135/81; O2SAT 97
[2024-10-20 01:03] VITALS: BP 157/90; O2SAT 98
[2024-10-20 09:25] VITALS: BP 148/84; O2SAT 97
[2024-10-20] MEDS ORDERED: AMINOCAPROIC ACID 250 MG/ML VIAL IV STA (16:38)
[2024-10-20 17:24] VITALS: BP 117/77; O2SAT 96
[2024-10-21 01:00] VITALS: BP 115/75; O2SAT 98
[2024-10-21] MEDS ORDERED: AMINOCAPROIC ACID 250 MG/ML VIAL IV SCH (05:00)
[2024-10-21 06:29] LABS: HEMATOCRIT 29.9 % (36.0-45.00); MEAN CELL VOLUME 87.7 fL (80.00-100.00); MEAN CORPUSCULAR HEMOGLOBIN 29.4 pg (27.00-32.0); MEAN CORPUSCULAR HGB CONC 33.6 g/dl (32.0-36.0); PLATELET COUNT 254 K/uL (150-450); RED BLOOD COUNT 3.41 M/uL (4.00-6.00); RED CELL DISTRIBUTION WIDTH 17.6 % (11.5-14.5)
[2024-10-21 09:07] VITALS: BP 135/86; O2SAT 99
[2024-10-21] MEDS ORDERED: AMINOCAPROIC ACID 20 MG/ML ML IV SCH (17:00)
[2024-10-21 17:25] VITALS: BP 124/72; O2SAT 95
[2024-10-21] MEDS ORDERED: PRAMOXINE HCL/CALAMINE 180 ML BOTTLE TOP SCH (17:49)
[2024-10-22 02:07] VITALS: BP 125/77; O2SAT 97
[2024-10-22 10:31] VITALS: BP 136/81; O2SAT 96
[2024-10-22 17:16] VITALS: BP 131/75; O2SAT 98
[2024-10-23 01:02] VITALS: BP 134/84; O2SAT 97
[2024-10-23 08:00] VITALS: BP 132/83; O2SAT 96
[2024-10-23 17:24] VITALS: BP 134/71; O2SAT 96
[2024-10-24 02:49] VITALS: BP 145/75; O2SAT 96
[2024-10-24 08:55] VITALS: BP 143/88; O2SAT 97
[2024-10-24 15:50] VITALS: BP 121/77; O2SAT 95
[2024-10-24] MEDS ORDERED: AMINOCAPROIC ACID 20 MG/ML ML IV SCH (21:00)
[2024-10-25 02:53] VITALS: BP 122/73; O2SAT 95
[2024-10-25 06:49] LABS: HEMATOCRIT 31.3 % (36.0-45.00); HEMOGLOBIN 10.6 g/dL (12.0-15.00); MEAN CELL VOLUME 88.3 fL (80.00-100.00); MEAN CORPUSCULAR HEMOGLOBIN 29.9 pg (27.00-32.0); MEAN CORPUSCULAR HGB CONC 33.9 g/dl (32.0-36.0); PLATELET COUNT 241 K/uL (150-450); RED BLOOD COUNT 3.54 M/uL (4.00-6.00); RED CELL DISTRIBUTION WIDTH 17.2 % (11.5-14.5)
[2024-10-25 10:40] VITALS: BP 130/75
[2024-10-25 18:34] VITALS: BP 138/77
[2024-10-26 02:33] VITALS: BP 135/74; O2SAT 95
[2024-10-26 09:30] VITALS: BP 155/90; O2SAT 98
[2024-10-26] MEDS ORDERED: AMICAR500 MG PO ×2 (12:20)
== END 2024-10-26 18:33 | disposition home or self-care (01) | DRG 812 ==
LOC: ER 18:35 → MEDJ 10-15 13:59
PROVIDERS: General Practice; ADMIT Internal Medicine Hematology & Oncology; ATTEND Internal Medicine Hematology & Oncology
PROC: 30233N1 Transfusion of Nonautologous Red Blood Cells into Peripheral Vein, Percutaneous Approach (ICD-10-PCS; principal; 2024-10-15)
PROC: 02HV33Z Insertion of Infusion Device into Superior Vena Cava, Percutaneous Approach (ICD-10-PCS; 2024-10-16)
DX: D62 Acute posthemorrhagic anemia (principal); C77.3 Secondary and unspecified malignant neoplasm of axilla and upper limb lymph nodes; C50.911 Malignant neoplasm of unspecified site of right female breast; N64.52 Nipple discharge; D63.0 Anemia in neoplastic disease; B96.89 Other specified bacterial agents as the cause of diseases classified elsewhere

== ENCOUNTER 2024-10-27 17:26 | Emergency (ER) | payer OTHER ==
[~2024-10-27] VITALS: Ht 162.6 cm; Wt 72.6 kg
[~2024-10-27 17:26] MED LIST changes: +AMICAR500 MG PO
[2024-10-27] MEDS ORDERED: MEPERIDINE HCL/PF 25 MG/ML VIAL IM STA (19:26)
== END 2024-10-27 20:24 | disposition home or self-care (01) ==
LOC: ER 17:28
DX: S21.001A Unspecified open wound of right breast, initial encounter (principal); X58.XXXA Exposure to other specified factors, initial encounter; Y93.89 Activity, other specified; Y92.89 Other specified places as the place of occurrence of the external cause; Y99.8 Other external cause status; Z88.6 Allergy status to analgesic agent

== ENCOUNTER 2024-11-15 16:14 | Emergency (ER) | payer OTHER ==
[~2024-11-15] VITALS: Ht 162.6 cm; Wt 73.5 kg
[2024-11-15 17:34] LABS: HEMATOCRIT 38.8 % (36.0-45.00); HEMOGLOBIN 12.9 g/dL (12.0-15.00); MEAN CELL VOLUME 87.6 fL (80.00-100.00); MEAN CORPUSCULAR HEMOGLOBIN 29.2 pg (27.00-32.0); MEAN CORPUSCULAR HGB CONC 33.4 g/dl (32.0-36.0); PLATELET COUNT 269 K/uL (150-450); RED BLOOD COUNT 4.43 M/uL (4.00-6.00)
[2024-11-15 17:44] LABS: RED CELL DISTRIBUTION WIDTH 20.9 % (11.5-14.5)
== END 2024-11-15 17:57 | disposition home or self-care (01) ==
LOC: ER 16:14
PROVIDERS: Emergency Medicine
DX: C50.911 Malignant neoplasm of unspecified site of right female breast (principal); Z88.6 Allergy status to analgesic agent; I10 Essential (primary) hypertension

== ENCOUNTER 2025-04-21 22:54 | Inpatient (IN) | payer OTHER ==
[~2025-04-21] VITALS: Ht 162.6 cm; Wt 73.5 kg
[2025-04-21] MEDS ORDERED: IBRANCE100 MG PO (23:23)
[2025-04-22] MEDS ORDERED: 0.9 % SODIUM CHLORIDE 1,000 ML IV STA (01:30)
[2025-04-22 02:22] LABS: EOS # 0.10 (0.04-0.54); EOS % 4.3 % (0.7-7.0); LYMPH # 0.76 (1.18-3.74); LYMPH % 32.3 % (19.3-53.1); MEAN PLATELET VOLUME 9.00 fl (9.4-12.4); MONO # 0.26 (0.24-0.82); MONO % 11.1 % (4.7-12.5); NEUT # 1.15 (1.56-6.13); NEUT % 48.9 % (34.0-71.1); RED CELL DISTRIBUTION WIDTH 13.6 % (11.6-14.4)
[2025-04-22 02:37] LABS: INR 0.99
[2025-04-22 02:40] LABS: BASO % 3.0 % (0.1-1.2)
[2025-04-22 03:52] LABS: EOSINOPHIL MAN 1.0 %; LYMPHOCYTE MAN 39.0 %; MONOCYTE MAN 5.0 %; NEUTROPHILS MAN 52.0 %
[2025-04-22 03:53] LABS: ERYTHROCYTE SEDIMENTATION RATE 72 mm/hr (0-30)
[2025-04-22 04:36] LABS: ALT/SGPT 31.0 U/L (12-78); AST/SGOT 42.0 U/L (15-37); BILIRUBIN TOTAL 0.29 mg/dL (0.3-1.2); BUN CREA RATIO 25.0 (7.0-25.0); CREATININE SERUM 0.92 mg/dL (0.55-1.02); GFR 59.04; GLOBULINA 3.6 G/DL (2.4-3.5); GLUCOSE FASTING 90.0 mg/dL (65-100); OSMOLALITY SERUM 283.0 MOSM/KG (275-295)
[2025-04-22] MEDS ORDERED: AMINOCAPROIC ACID 250 MG/ML VIAL IV STA (07:23)
[2025-04-22] MEDS ORDERED: FILGRASTIM-AAFI 480 MCG/0.8 ML SYRINGE SUBCUTANEO STA (11:30)
[2025-04-22 13:04] LABS: EOS # 0.09 (0.04-0.54); EOS % 4.1 % (0.7-7.0); LYMPH # 0.59 (1.18-3.74); LYMPH % 26.6 % (19.3-53.1); MEAN PLATELET VOLUME 8.70 fl (9.4-12.4); MONO # 0.22 (0.24-0.82); MONO % 9.9 % (4.7-12.5); NEUT # 1.25 (1.56-6.13); NEUT % 56.2 % (34.0-71.1); RED CELL DISTRIBUTION WIDTH 13.7 % (11.6-14.4)
[2025-04-22 13:12] LABS: BASO % 2.7 % (0.1-1.2)
[2025-04-22] MEDS ORDERED: LOSARTAN/HYDROCHLOROTHIAZIDE 1 UDTAB TABLET PO SCH (17:28)
[2025-04-22] MEDS ORDERED: ACETAMINOPHEN 325 MG TABLET PO PRN (17:30)
[2025-04-22] MEDS ORDERED: MORPHINE SULFATE 2 MG/ML CARTRIDGE IV PRN (17:30)
[2025-04-22] MEDS ORDERED: PIPERACILLIN/TAZOBACTAM SODIUM 4.5 GM in 0.9 % SODIUM CHLORIDE 100 ML IV SCH (18:00)
[2025-04-22] MEDS ORDERED: 0.9 % SODIUM CHLORIDE 1,000 ML IV SCH (18:00)
[2025-04-22 23:00] VITALS: BP 126/81; O2SAT 100
[2025-04-23] VITALS (7 sets, daily range): BP systolic 84–101; BP diastolic 46–66; O2SAT 95–100
[2025-04-23] MEDS ORDERED: FILGRASTIM-AAFI 480 MCG/0.8 ML SYRINGE SUBCUTANEO SCH ×2 (09:00→17:00)
[2025-04-23 09:33] LABS: ALT/SGPT 28.0 U/L (12-78); AST/SGOT 40.0 U/L (15-37); BILIRUBIN TOTAL 0.43 mg/dL (0.3-1.2); BILIRUBIN,CONJUGATED 0.15 mg/dL (0.0-0.2)
[2025-04-24] VITALS: BP 94/55; O2SAT 96
[2025-04-24] MEDS ORDERED: LOSARTAN POTASSIUM 25 MG TABLET PO SCH (09:00)
[2025-04-24 09:17] VITALS: BP 117/72; O2SAT 95
[2025-04-24 16:00] VITALS: BP 100/63; O2SAT 96
[2025-04-24 22:56] LABS: BASO % 1.2 % (0.1-1.2); EOS # 0.17 (0.04-0.54); EOS % 1.9 % (0.7-7.0); LYMPH # 1.08 (1.18-3.74); LYMPH % 12.0 % (19.3-53.1); MEAN PLATELET VOLUME 10.20 fl (9.4-12.4); MONO # 0.42 (0.24-0.82); MONO % 4.7 % (4.7-12.5); NEUT # 7.17 (1.56-6.13); NEUT % 79.4 % (34.0-71.1)
[2025-04-24 22:57] LABS: RED CELL DISTRIBUTION WIDTH 20.5 % (11.6-14.4)
[2025-04-25 01:31] VITALS: BP 109/71; O2SAT 97
[2025-04-25 08:00] VITALS: BP 138/73; O2SAT 95
[2025-04-25] MEDS ORDERED: VANCOMYCIN HCL 1,000 MG VIAL IV SCH (12:00)
[2025-04-25 14:08] LABS: BASO % 0.5 % (0.1-1.2); EOS # 0.14 (0.04-0.54); EOS % 1.2 % (0.7-7.0); LYMPH # 1.08 (1.18-3.74); LYMPH % 9.6 % (19.3-53.1); MEAN PLATELET VOLUME 9.00 fl (9.4-12.4); MONO # 0.84 (0.24-0.82); MONO % 7.5 % (4.7-12.5); NEUT # 9.05 (1.56-6.13); NEUT % 80.6 % (34.0-71.1); RED CELL DISTRIBUTION WIDTH 20.0 % (11.6-14.4)
[2025-04-25 14:46] LABS: BAND MAN 11.0 %; EOSINOPHIL MAN 1.0 %; LYMPHOCYTE MAN 9.0 %; MONOCYTE MAN 7.0 %
[2025-04-25 14:47] LABS: BASOPHIL MAN 2.0 %
[2025-04-25 14:48] LABS: NEUTROPHILS MAN 67.0 %
[2025-04-25 17:26] VITALS: BP 135/85; O2SAT 96
[2025-04-26 02:23] VITALS: BP 120/75; O2SAT 97
[2025-04-26 08:00] VITALS: BP 129/70; O2SAT 97
[2025-04-26 17:36] VITALS: BP 129/79; O2SAT 96
[2025-04-27 01:59] VITALS: BP 149/85; O2SAT 97
[2025-04-27 08:00] VITALS: BP 130/70; O2SAT 97
[2025-04-27 11:11] LABS: BUN CREA RATIO 21.0 (7.0-25.0); CREATININE SERUM 0.68 mg/dL (0.55-1.02); GFR 83.68; GLUCOSE FASTING 118.0 mg/dL (65-100); OSMOLALITY SERUM 285.0 MOSM/KG (275-295)
[2025-04-27 18:24] VITALS: BP 148/99; O2SAT 95
[2025-04-28 02:22] VITALS: BP 152/87; O2SAT 95
[2025-04-28 07:00] VITALS: BP 155/74; O2SAT 95
[2025-04-28 07:29] LABS: EOS # 0.17 (0.04-0.54); EOS % 3.0 % (0.7-7.0); LYMPH # 0.80 (1.18-3.74); LYMPH % 13.9 % (19.3-53.1); MEAN PLATELET VOLUME 9.60 fl (9.4-12.4); MONO # 0.55 (0.24-0.82); MONO % 9.6 % (4.7-12.5); NEUT # 4.06 (1.56-6.13); NEUT % 70.5 % (34.0-71.1); RED CELL DISTRIBUTION WIDTH 17.7 % (11.6-14.4)
[2025-04-28 07:43] LABS: BUN CREA RATIO 26.0 (7.0-25.0); CREATININE SERUM 0.54 mg/dL (0.55-1.02); GFR 109.18; GLUCOSE FASTING 81.0 mg/dL (65-100); OSMOLALITY SERUM 283.0 MOSM/KG (275-295)
[2025-04-28 08:52] LABS: BAND MAN 1.0 %; BASO % 2.1 % (0.1-1.2); LYMPHOCYTE MAN 11.0 %; MONOCYTE MAN 6.0 %; NEUTROPHILS MAN 79.0 %
[2025-04-28 08:53] LABS: BASOPHIL MAN 3.0 %
[2025-04-28] MEDS ORDERED: AMINOCAPROIC ACID 250 MG/ML VIAL IV STA (11:41)
[2025-04-28] MEDS ORDERED: AMINOCAPROIC ACID 250 MG/ML VIAL IV SCH (12:00)
[2025-04-28 12:06] LABS: BASO % 1.8 % (0.1-1.2); EOS # 0.11 (0.04-0.54); EOS % 2.2 % (0.7-7.0); LYMPH # 0.82 (1.18-3.74); LYMPH % 16.5 % (19.3-53.1); MEAN PLATELET VOLUME 9.20 fl (9.4-12.4); MONO # 0.51 (0.24-0.82); MONO % 10.3 % (4.7-12.5); NEUT # 3.41 (1.56-6.13); NEUT % 68.8 % (34.0-71.1); RED CELL DISTRIBUTION WIDTH 17.8 % (11.6-14.4)
[2025-04-28] MEDS ORDERED: HYDROGEN PEROXIDE 118 ML SOLUTION TOP ONE (12:15)
[2025-04-28 12:30] LABS: INR 1.04
[2025-04-28] MEDS ORDERED: MORPHINE SULFATE 2 MG/ML CARTRIDGE IV PRN (13:00)
[2025-04-28 15:00] VITALS: BP 110/73; O2SAT 99
[2025-04-29 00:54] VITALS: BP 133/71; O2SAT 95
[2025-04-29 08:00] VITALS: BP 124/76; O2SAT 94
[2025-04-29 16:00] VITALS: BP 127/78; O2SAT 95
[2025-04-30 01:09] VITALS: BP 125/77; O2SAT 95
[2025-04-30 10:16] VITALS: BP 108/71; O2SAT 94
[2025-04-30 16:00] VITALS: BP 115/75; O2SAT 97
[2025-05-01 01:16] VITALS: BP 154/103; O2SAT 99
[2025-05-01] MEDS ORDERED: ENALAPRILAT DIHYDRATE 1.25 MG/ML VIAL IV PRN (02:00)
[2025-05-01 06:18] LABS: BASO % 1.4 % (0.1-1.2); EOS # 0.10 (0.04-0.54); EOS % 1.6 % (0.7-7.0); LYMPH # 0.94 (1.18-3.74); LYMPH % 15.1 % (19.3-53.1); MEAN PLATELET VOLUME 9.90 fl (9.4-12.4); MONO # 0.73 (0.24-0.82); MONO % 11.7 % (4.7-12.5); NEUT # 4.34 (1.56-6.13); NEUT % 69.6 % (34.0-71.1); RED CELL DISTRIBUTION WIDTH 17.3 % (11.6-14.4)
[2025-05-01 07:22] LABS: BUN CREA RATIO 29.0 (7.0-25.0); CREATININE SERUM 0.49 mg/dL (0.55-1.02); GFR 122.14; GLUCOSE FASTING 100.0 mg/dL (65-100); OSMOLALITY SERUM 289.0 MOSM/KG (275-295)
[2025-05-01 08:00] VITALS: BP 125/73; O2SAT 98
[2025-05-01 16:00] VITALS: BP 119/71; O2SAT 96
[2025-05-02 01:24] VITALS: BP 122/78; O2SAT 97
[2025-05-02 08:57] VITALS: BP 116/78; O2SAT 95
[2025-05-02 16:00] VITALS: BP 123/67; O2SAT 96
[2025-05-02] MEDS ORDERED: IPRATROPIUM BROMIDE 0.5 MG/2.5 ML AMPUL.NEB IH SCH ×2 (17:00)
[2025-05-02] MEDS ORDERED: LACTULOSE 20 G/30 ML BLIST.PACK PO STA (20:28)
[2025-05-02] MEDS ORDERED: ALBUTEROL SULFATE 3 ML/2.5 MG AMPUL.NEB IH STA (20:28)
[2025-05-02 20:59] LABS: BASO % 1.6 % (0.1-1.2); EOS # 0.05 (0.04-0.54); EOS % 0.7 % (0.7-7.0); LYMPH # 1.03 (1.18-3.74); LYMPH % 15.2 % (19.3-53.1); MEAN PLATELET VOLUME 9.30 fl (9.4-12.4); MONO # 0.68 (0.24-0.82); MONO % 10.0 % (4.7-12.5); NEUT # 4.87 (1.56-6.13); NEUT % 71.8 % (34.0-71.1); RED CELL DISTRIBUTION WIDTH 18.1 % (11.6-14.4)
[2025-05-02] MEDS ORDERED: ALBUTEROL SULFATE 3 ML/2.5 MG AMPUL.NEB IH SCH (21:00)
[2025-05-02 23:56] LABS: ABG PH 7.461 (7.35-7.45); BICARBONATE 23.2 mmol/l (23-25); o2 32 %
[2025-05-02 23:57] LABS: ABG PO2 75.6 mmHg (80-100)
[2025-05-03 00:33] VITALS: BP 128/72; O2SAT 97
[2025-05-03 09:45] VITALS: BP 142/83; O2SAT 95
[2025-05-03 16:42] VITALS: BP 121/82; O2SAT 98
[2025-05-03 19:00] VITALS: BP 159/77
[2025-05-04 00:59] VITALS: BP 148/73; O2SAT 97
[2025-05-04 08:00] VITALS: BP 131/81; O2SAT 93
[2025-05-04 15:02] LABS: BASO % 1.5 % (0.1-1.2); EOS # 0.07 (0.04-0.54); EOS % 0.9 % (0.7-7.0); LYMPH # 0.67 (1.18-3.74); LYMPH % 9.0 % (19.3-53.1); MEAN PLATELET VOLUME 9.00 fl (9.4-12.4); MONO # 0.74 (0.24-0.82); MONO % 10.0 % (4.7-12.5); NEUT # 5.79 (1.56-6.13); NEUT % 78.1 % (34.0-71.1); RED CELL DISTRIBUTION WIDTH 17.9 % (11.6-14.4)
[2025-05-04 15:30] LABS: ALT/SGPT 29.0 U/L (12-78); AST/SGOT 63.0 U/L (15-37); BILIRUBIN TOTAL 0.38 mg/dL (0.3-1.2); BUN CREA RATIO 29.0 (7.0-25.0); CREATININE SERUM 0.49 mg/dL (0.55-1.02); GFR 122.14; GLOBULINA 3.2 G/DL (2.4-3.5); GLUCOSE FASTING 110.0 mg/dL (65-100); OSMOLALITY SERUM 281.0 MOSM/KG (275-295)
[2025-05-04 16:00] VITALS: BP 111/65; O2SAT 94
[2025-05-05 07:16] LABS: GLUCOSE FASTING 150.0 mg/dL (65-100); OSMOLALITY SERUM 291.0 MOSM/KG (275-295)
[2025-05-05 07:47] LABS: BUN CREA RATIO 38.0 (7.0-25.0); CREATININE SERUM 0.29 mg/dL (0.55-1.02); GFR 223.73
[2025-05-05 08:00] VITALS: BP 117/74; O2SAT 96
[2025-05-05] MEDS ORDERED: POTASSIUM CHLORIDE/D5-0.45NACL 1,000 ML IV ONE (09:15)
[2025-05-05] MEDS ORDERED: POTASSIUM CHLORIDE IN WATER 100 ML IV NR (17:00)
[2025-05-05 17:04] VITALS: BP 99/69; O2SAT 95
[2025-05-06 01:08] VITALS: BP 103/67; O2SAT 95
[2025-05-06 13:41] LABS: EOS # 0.08 (0.04-0.54); EOS % 1.2 % (0.7-7.0); LYMPH # 0.71 (1.18-3.74); LYMPH % 10.7 % (19.3-53.1); MEAN PLATELET VOLUME 9.10 fl (9.4-12.4); MONO # 0.89 (0.24-0.82); NEUT # 4.78 (1.56-6.13); NEUT % 72.1 % (34.0-71.1); RED CELL DISTRIBUTION WIDTH 17.2 % (11.6-14.4)
[2025-05-06 13:45] LABS: BASO % 2.1 % (0.1-1.2); MONO % 13.4 % (4.7-12.5)
[2025-05-06 16:00] VITALS: BP 104/71; O2SAT 95
[2025-05-07 01:39] VITALS: BP 117/73; O2SAT 96
[2025-05-07 08:30] VITALS: BP 104/66; O2SAT 91
[2025-05-07 09:45] LABS: BUN CREA RATIO 31.0 (7.0-25.0); CREATININE SERUM 0.55 mg/dL (0.55-1.02); GFR 106.9; GLUCOSE FASTING 104.0 mg/dL (65-100); OSMOLALITY SERUM 278.0 MOSM/KG (275-295)
[2025-05-07 16:00] VITALS: BP 120/74; O2SAT 95
[2025-05-08 00:39] VITALS: BP 99/79; O2SAT 98
[2025-05-08 08:58] VITALS: BP 108/72; O2SAT 95
[2025-05-08] MEDS ORDERED: ENOXAPARIN SODIUM 30 MG/0.3 ML SYRINGE SUBCUTANEO SCH (12:22)
[2025-05-08 17:22] VITALS: BP 113/78; O2SAT 94
[2025-05-08 21:39] LABS: MONONUCLEAR 84.9 %; POLYMORPHONUCLEAR 15.1 %
[2025-05-08 22:01] LABS: GLU PLEURAL FLUID 26.0 mg/dl; LDH PLEURAL FLUID 626.0 U/L; TP PLEURAL FLUID 3.3 g/dl
[2025-05-09 01:59] VITALS: BP 103/69; O2SAT 95
[2025-05-09 08:59] VITALS: BP 99/65; O2SAT 96
[2025-05-09 12:13] LABS: EOS # 0.10 (0.04-0.54); EOS % 2.0 % (0.7-7.0); LYMPH # 0.57 (1.18-3.74); LYMPH % 11.4 % (19.3-53.1); MEAN PLATELET VOLUME 9.20 fl (9.4-12.4); MONO # 0.76 (0.24-0.82); NEUT # 3.44 (1.56-6.13); NEUT % 68.5 % (34.0-71.1); RED CELL DISTRIBUTION WIDTH 16.3 % (11.6-14.4)
[2025-05-09 12:18] LABS: BASO % 2.8 % (0.1-1.2); MONO % 15.1 % (4.7-12.5)
[2025-05-09 17:29] VITALS: BP 92/64; O2SAT 95
[2025-05-09] MEDS ORDERED: APIXABAN 2.5 MG TABLET PO SCH (21:00)
[2025-05-10] VITALS: BP 89/61; O2SAT 95
[2025-05-10 09:25] VITALS: BP 110/76; O2SAT 95
[2025-05-10 17:43] VITALS: BP 104/62; O2SAT 95
== END 2025-05-10 19:49 | DRG 598 ==
LOC: ER 22:54 → SURH 04-22 17:56 → SEC-K 04-22 17:56 → SURH 04-23 00:28
PROVIDERS: General Practice; Internal Medicine Hematology & Oncology; Radiology Vascular & Interventional Radiology; Student in an Organized Health Care Education/Training Program; ADMIT Internal Medicine; ATTEND Internal Medicine
PROC: BB24ZZZ Computerized Tomography (CT Scan) of Bilateral Lungs (ICD-10-PCS; 2025-04-22)
PROC: BW21YZZ Computerized Tomography (CT Scan) of Abdomen and Pelvis using Other Contrast (ICD-10-PCS; 2025-04-22)
PROC: 8E0ZXY6 Isolation (ICD-10-PCS; 2025-04-22)
PROC: 30233N1 Transfusion of Nonautologous Red Blood Cells into Peripheral Vein, Percutaneous Approach (ICD-10-PCS; principal; 2025-04-23)
PROC: 02HV33Z Insertion of Infusion Device into Superior Vena Cava, Percutaneous Approach (ICD-10-PCS; 2025-04-28)
PROC: B548ZZA Ultrasonography of Superior Vena Cava, Guidance (ICD-10-PCS; 2025-04-28)
PROC: 3E0F7GC Introduction of Other Therapeutic Substance into Respiratory Tract, Via Natural or Artificial Opening (ICD-10-PCS; 2025-05-03)
PROC: B54MZZZ Ultrasonography of Right Upper Extremity Veins (ICD-10-PCS; 2025-05-07)
PROC: 0W993ZZ Drainage of Right Pleural Cavity, Percutaneous Approach (ICD-10-PCS; 2025-05-08)
DX: C50.911 Malignant neoplasm of unspecified site of right female breast (principal); C77.3 Secondary and unspecified malignant neoplasm of axilla and upper limb lymph nodes; C79.51 Secondary malignant neoplasm of bone; C79.2 Secondary malignant neoplasm of skin; C78.7 Secondary malignant neoplasm of liver and intrahepatic bile duct; D62 Acute posthemorrhagic anemia; R78.81 Bacteremia; J90 Pleural effusion, not elsewhere classified; I82.C11 Acute embolism and thrombosis of right internal jugular vein; S21.001A Unspecified open wound of right breast, initial encounter; D64.89 Other specified anemias; D70.2 Other drug-induced agranulocytosis; K59.00 Constipation, unspecified; J98.01 Acute bronchospasm; E87.6 Hypokalemia; R60.1 Generalized edema; Z88.6 Allergy status to analgesic agent; B96.4 Proteus (mirabilis) (morganii) as the cause of diseases classified elsewhere; B96.5 Pseudomonas (aeruginosa) (mallei) (pseudomallei) as the cause of diseases classified elsewhere

== ENCOUNTER 2025-05-12 14:06 | Inpatient (IN) | payer OTHER ==
[~2025-05-12] VITALS: Ht 162.6 cm; Wt 73.5 kg
[~2025-05-12 14:06] MED LIST changes: +IBRANCE100 MG PO
[2025-05-12] MEDS ORDERED: ELIQUIS2.5 MG PO (14:20)
[2025-05-12] MEDS ORDERED: 0.9 % SODIUM CHLORIDE 500 ML IV ONE (16:15)
[2025-05-12 16:55] LABS: ABG PH 7.520 (7.35-7.45); ABG PO2 64.9 mmHg (80-100); BICARBONATE 25.6 mmol/l (23-25)
[2025-05-12 17:09] LABS: BASO % 1.6 % (0.1-1.2); EOS # 0.06 (0.04-0.54); EOS % 0.8 % (0.7-7.0); LYMPH # 0.87 (1.18-3.74); LYMPH % 11.8 % (19.3-53.1); MEAN PLATELET VOLUME 9.10 fl (9.4-12.4); MONO # 1.77 (0.24-0.82); NEUT # 4.56 (1.56-6.13); NEUT % 61.6 % (34.0-71.1); RED CELL DISTRIBUTION WIDTH 15.9 % (11.6-14.4)
[2025-05-12 17:36] LABS: BAND MAN 1.0 %; BASOPHIL MAN 4.0 %; EOSINOPHIL MAN 1.0 %; LYMPHOCYTE MAN 10.0 %; MONO % 23.9 % (4.7-12.5); MONOCYTE MAN 19.0 %; NEUTROPHILS MAN 65.0 %
[2025-05-12 17:42] LABS: INR 1.09
[2025-05-12 17:46] LABS: ALT/SGPT 35.0 U/L (12-78); AST/SGOT 82.0 U/L (15-37); BILIRUBIN TOTAL 0.61 mg/dL (0.3-1.2); BUN CREA RATIO 26.0 (7.0-25.0); CREATININE SERUM 0.66 mg/dL (0.55-1.02); GFR 86.61; GLOBULINA 4.0 G/DL (2.4-3.5); GLUCOSE FASTING 102.0 mg/dL (65-100); OSMOLALITY SERUM 274.0 MOSM/KG (275-295)
[2025-05-12 18:43] LABS: o2 21 %
[2025-05-12 19:39] LABS: COVID-19 AG NEGATIVE (NEGATIVE)
[2025-05-12] MEDS ORDERED: ONDANSETRON HCL 4 MG in 0.9 % SODIUM CHLORIDE 50 ML IV PRN (21:45)
[2025-05-12] MEDS ORDERED: ACETAMINOPHEN 500 MG GEL..CAP PO PRN (21:45)
[2025-05-12] MEDS ORDERED: IPRATROPIUM BROMIDE 0.5 MG/2.5 ML AMPUL.NEB IH SCH (21:45)
[2025-05-12] MEDS ORDERED: PIPERACILLIN/TAZOBACTAM SODIUM 3.375 GM VIAL IV ONE (23:23)
[2025-05-12 23:40] VITALS: BP 107/73; O2SAT 94
[2025-05-13] MEDS ORDERED: PIPERACILLIN/TAZOBACTAM SODIUM 3.375 GM in DEXTROSE 5 % IN WATER 100 ML IV SCH
[2025-05-13] MEDS ORDERED: IPRATROPIUM BROMIDE 0.5 MG/2.5 ML AMPUL.NEB IH ONE (00:23)
[2025-05-13] MEDS ORDERED: ACETAMINOPHEN 500 MG GEL..CAP PO ONE (02:50)
[2025-05-13] MEDS ORDERED: PIPERACILLIN/TAZOBACTAM SODIUM 3.375 GM VIAL IV ONE (05:04)
[2025-05-13 05:39] VITALS: BP 94/62; O2SAT 98
[2025-05-13 08:00] VITALS: BP 125/75; O2SAT 95
[2025-05-13] MEDS ORDERED: APIXABAN 2.5 MG TABLET PO SCH (09:00)
[2025-05-13] MEDS ORDERED: FAMOTIDINE/PF 20 MG in 0.9 % SODIUM CHLORIDE 8 ML IV PUSH SCH (09:00)
[2025-05-13 16:00] VITALS: BP 113/67; O2SAT 97
[2025-05-13 23:54] VITALS: BP 130/75; O2SAT 96
[2025-05-14 08:00] VITALS: BP 122/77; O2SAT 96
[2025-05-14 16:19] VITALS: BP 122/73; O2SAT 97
[2025-05-14 19:18] LABS: URINE APPEARANCE CLOUDY; URINE BILIRRUBIN NEGATIVE (NEGATIVE); URINE BLOOD NEGATIVE; URINE COLOR YELLOW; URINE GLUCOSE NEGATIVE (NEGATIVE); URINE KETONE TRACE (NEGATIVE)
[2025-05-14 19:19] LABS: URINE LEUKOCYTE MODERATE; URINE NITRATE NEGATIVE; URINE PROTEIN TRACE (NEGATIVE); URINE UROBILINOGEN 1.0 E.U./dl
[2025-05-14 19:20] LABS: URINE BACTERIA 279.5 uL (0.0-1933); URINE CAST 0.14 uL (0.0-1.40); URINE CRYSTALS FEW /HPF; URINE EPITHELIAL CELLS 17.0 uL (0.0-38.8); URINE RBC 4465.5 uL (0.0-20.8); URINE WBC 441.9 uL (0.0-23.2); URINE YEAST MANY /hpf
[2025-05-15 01:46] VITALS: BP 105/59; O2SAT 92
[2025-05-15 12:40] LABS: EOS # 0.27 (0.04-0.54); EOS % 5.0 % (0.7-7.0); LYMPH # 1.02 (1.18-3.74); LYMPH % 19.0 % (19.3-53.1); MEAN PLATELET VOLUME 9.00 fl (9.4-12.4); MONO # 1.06 (0.24-0.82); NEUT # 2.86 (1.56-6.13); NEUT % 53.2 % (34.0-71.1); RED CELL DISTRIBUTION WIDTH 15.9 % (11.6-14.4)
[2025-05-15 12:46] VITALS: BP 142/85; O2SAT 94
[2025-05-15 13:04] LABS: BASO % 2.2 % (0.1-1.2); MONO % 19.7 % (4.7-12.5)
[2025-05-16 03:47] VITALS: BP 100/67; O2SAT 95
[2025-05-16 08:00] VITALS: BP 126/80; O2SAT 96
[2025-05-16] MEDS ORDERED: ENOXAPARIN SODIUM 40 MG/0.4 ML SYRINGE SUBCUTANEO SCH (09:00)
[2025-05-16 16:06] VITALS: BP 115/77; O2SAT 96
[2025-05-17] VITALS: BP 105/61; O2SAT 97
[2025-05-17 07:22] LABS: BASO % 1.8 % (0.1-1.2); EOS # 0.47 (0.04-0.54); EOS % 7.2 % (0.7-7.0); LYMPH # 1.12 (1.18-3.74); LYMPH % 17.3 % (19.3-53.1); MEAN PLATELET VOLUME 9.00 fl (9.4-12.4); MONO # 1.15 (0.24-0.82); NEUT # 3.57 (1.56-6.13); NEUT % 55.1 % (34.0-71.1); RED CELL DISTRIBUTION WIDTH 15.9 % (11.6-14.4)
[2025-05-17 07:30] LABS: MONO % 17.7 % (4.7-12.5)
[2025-05-17 08:00] VITALS: BP 105/64; O2SAT 97
[2025-05-17] MEDS ORDERED: IRON/V.C/V.B12/FOLIC A/VIT. E 1 CAPL CAPLET PO NR (10:00)
[2025-05-17] MEDS ORDERED: ONDANSETRON HCL 4 MG in 0.9 % SODIUM CHLORIDE 50 ML IV PRN (11:45)
[2025-05-17 16:00] VITALS: BP 106/70; O2SAT 96
[2025-05-18 00:35] VITALS: BP 109/76; O2SAT 99
[2025-05-18 08:10] VITALS: BP 114/77; O2SAT 99
[2025-05-18] MEDS ORDERED: IRON/V.C/V.B12/FOLIC A/VIT. E 1 CAPL CAPLET PO SCH (09:00)
== END 2025-05-18 18:00 | disposition home or self-care (01) | DRG 592 ==
LOC: ER 14:06 → SEC-K 22:09 → SURG 05-13 04:46
PROVIDERS: Emergency Medicine; ADMIT Internal Medicine; ATTEND Internal Medicine
PROC: BW24ZZZ Computerized Tomography (CT Scan) of Chest and Abdomen (ICD-10-PCS; 2025-05-12)
PROC: 0W993ZZ Drainage of Right Pleural Cavity, Percutaneous Approach (ICD-10-PCS; principal; 2025-05-15)
DX: L98.499 Non-pressure chronic ulcer of skin of other sites with unspecified severity (principal); J18.9 Pneumonia, unspecified organism; C79.81 Secondary malignant neoplasm of breast; J90 Pleural effusion, not elsewhere classified; C80.1 Malignant (primary) neoplasm, unspecified; R59.1 Generalized enlarged lymph nodes; S21.001A Unspecified open wound of right breast, initial encounter

== ENCOUNTER 2025-05-30 11:32 | Inpatient (IN) | payer OTHER ==
[~2025-05-30] VITALS: Ht 152.4 cm; Wt 73.5 kg
[~2025-05-30 11:32] MED LIST changes: +ELIQUIS2.5 MG PO
--- NOTE | 2025-05-30 11:55 | NUR ---
PTE ALERTA Y ORIENTADA X3 LLEGA A ER EN AMBULANCIA. FAMILIAR DE PTE REFIERE QUE PRESENTA INFECCION EN SENO DERECHO. PTE CON HX DE CANCER. SE MARY S/V Y SE UBICA EN SECCION K9.
[2025-05-30] MEDS ORDERED: PIPERACILLIN/TAZOBACTAM SODIUM 3.375 GM VIAL IV ONE (12:15)
[2025-05-30] MEDS ORDERED: 0.9 % SODIUM CHLORIDE 1,000 ML IV SCH (12:15)
--- NOTE | 2025-05-30 12:20 | NUR ---
PTE EVALUADA POR EL DR. CHAN. SE CANLIZA, COLECTA MUESTRAS DE LAB Y SE ADMINISTRA MEDICAMENTO SERENA ORDEN MEDICA BAJO MEDIDAS ASEPTICAS. SE NOTIFICA XARY Y ABG. SE NOTFICA A SKIN TEAM.
[2025-05-30 12:59] LABS: BASO % 1.3 % (0.1-1.2); EOS # 0.19 (0.04-0.54); EOS % 3.0 % (0.7-7.0); LYMPH # 0.65 (1.18-3.74); LYMPH % 10.3 % (19.3-53.1); MEAN PLATELET VOLUME 9.10 fl (9.4-12.4); MONO # 0.51 (0.24-0.82); MONO % 8.1 % (4.7-12.5); NEUT # 4.84 (1.56-6.13); NEUT % 76.7 % (34.0-71.1); RED CELL DISTRIBUTION WIDTH 16.8 % (11.6-14.4)
[2025-05-30 13:08] LABS: COVID-19 AG NEGATIVE (NEGATIVE)
[2025-05-30 13:19] LABS: ABG PH 7.398 (7.35-7.45); ABG PO2 78.7 mmHg (80-100); BICARBONATE 22.7 mmol/l (23-25)
[2025-05-30 13:20] LABS: o2 36 %
[2025-05-30 13:36] LABS: BUN CREA RATIO 21.0 (7.0-25.0); CREATININE SERUM 0.97 mg/dL (0.55-1.02); GFR 55.54; GLUCOSE FASTING 118.0 mg/dL (65-100); OSMOLALITY SERUM 285.0 MOSM/KG (275-295)
[2025-05-30] MEDS ORDERED: IPRATROPIUM BROMIDE 0.5 MG/2.5 ML AMPUL.NEB IH SCH (18:15)
[2025-05-30] MEDS ORDERED: FAMOTIDINE/PF 20 MG in 0.9 % SODIUM CHLORIDE 8 ML IV PUSH SCH (18:18)
[2025-05-30] MEDS ORDERED: ACETAMINOPHEN 500 MG GEL..CAP PO PRN (18:30)
[2025-05-30 20:13] LABS: URINE APPEARANCE Cloudy; URINE BILIRRUBIN Negative (NEGATIVE); URINE BLOOD Negative; URINE COLOR Dark Yellow; URINE GLUCOSE Negative (NEGATIVE); URINE KETONE Trace (NEGATIVE); URINE LEUKOCYTE Small; URINE NITRATE Negative; URINE PROTEIN 30 (NEGATIVE); URINE UROBILINOGEN 1.0 E.U./dl
[2025-05-30 20:15] VITALS: O2SAT 95
[2025-05-30 20:16] LABS: URINE BACTERIA 43.1 uL (0.0-1933); URINE EPITHELIAL CELLS 2.7 uL (0.0-38.8); URINE RBC 876.3 uL (0.0-20.8); URINE WBC 51.5 uL (0.0-23.2)
[2025-05-30 20:38] LABS: TYPE CELLS RENAL TUBULAR; URINE CAST 1.31 uL (0.0-1.40)
[2025-05-30 20:39] LABS: URINE CRYSTALS FEW /HPF; URINE YEAST MANY /hpf
[2025-05-30 22:42] VITALS: BP 138/76; O2SAT 95
[2025-05-30 23:55] VITALS: O2SAT 97
[2025-05-31] VITALS (9 sets, daily range): BP systolic 93–118; BP diastolic 69–73; O2SAT 94–97
[2025-05-31 00:11] LABS: INR 1.09
[2025-05-31 00:31] LABS: ABG PH 7.315 (7.35-7.45); ABG PO2 104.7 mmHg (80-100); BICARBONATE 23.2 mmol/l (23-25)
[2025-05-31 00:58] LABS: o2 50 %
[2025-05-31] MEDS ORDERED: IPRATROPIUM BROMIDE 0.5 MG/2.5 ML AMPUL.NEB IH SCH (01:00)
[2025-05-31] MEDS ORDERED: IRON FUM,PS/FOLIC/BCOMP,C NO.9 1 CAP CAPSULE PO SCH (09:00)
[2025-05-31] MEDS ORDERED: ENOXAPARIN SODIUM 40 MG/0.4 ML SYRINGE SUBCUTANEO SCH (09:00)
[2025-06-01] VITALS (9 sets, daily range): BP systolic 113–124; BP diastolic 68–75; O2SAT 94–98
[2025-06-01 13:06] LABS: BASO % 1.4 % (0.1-1.2); EOS # 0.20 (0.04-0.54); EOS % 3.9 % (0.7-7.0); LYMPH # 0.57 (1.18-3.74); LYMPH % 11.2 % (19.3-53.1); MEAN PLATELET VOLUME 8.90 fl (9.4-12.4); MONO # 0.45 (0.24-0.82); MONO % 8.8 % (4.7-12.5); NEUT # 3.76 (1.56-6.13); NEUT % 73.9 % (34.0-71.1); RED CELL DISTRIBUTION WIDTH 16.7 % (11.6-14.4)
[2025-06-01] MEDS ORDERED: BUPIVACAINE HCL 30 ML VIAL IJ ONE (19:30)
[2025-06-02] VITALS (10 sets, daily range): BP systolic 100–147; BP diastolic 64–80; O2SAT 96–99
[2025-06-03] VITALS (10 sets, daily range): BP systolic 98–113; BP diastolic 65–75; O2SAT 96–99
[2025-06-04] VITALS (9 sets, daily range): BP systolic 87–114; BP diastolic 61–80; O2SAT 90–100
[2025-06-05] VITALS (10 sets, daily range): BP systolic 104–149; BP diastolic 70–82; O2SAT 90–100
[2025-06-05 22:55] LABS: BASO % 1.0 % (0.1-1.2); EOS # 0.19 (0.04-0.54); EOS % 3.9 % (0.7-7.0); LYMPH # 0.90 (1.18-3.74); LYMPH % 18.3 % (19.3-53.1); MEAN PLATELET VOLUME 8.80 fl (9.4-12.4); MONO # 0.79 (0.24-0.82); NEUT # 2.98 (1.56-6.13); NEUT % 60.4 % (34.0-71.1); RED CELL DISTRIBUTION WIDTH 16.7 % (11.6-14.4)
[2025-06-05 23:25] LABS: MONO % 16.0 % (4.7-12.5)
[2025-06-05 23:26] LABS: EOSINOPHIL MAN 5.0 %; LYMPHOCYTE MAN 20.0 %; MONOCYTE MAN 15.0 %; NEUTROPHILS MAN 60.0 %
[2025-06-06] VITALS (7 sets, daily range): BP systolic 94–105; BP diastolic 50–73; O2SAT 92–98
[2025-06-06] MEDS ORDERED: TRAMADOL HCL 50 MG TABLET PO SCH (14:11)
[2025-06-06] MEDS ORDERED: ACETAMINOPHEN 500 MG GEL..CAP PO SCH (17:00)
[2025-06-06] MEDS ORDERED: AMINOCAPROIC ACID 250 MG/ML VIAL IV STA (18:29)
[2025-06-06 20:02] LABS: BASO % 0.6 % (0.1-1.2); EOS # 0.05 (0.04-0.54); EOS % 1.1 % (0.7-7.0); LYMPH # 0.77 (1.18-3.74); LYMPH % 16.2 % (19.3-53.1); MEAN PLATELET VOLUME 9.20 fl (9.4-12.4); MONO # 0.87 (0.24-0.82); NEUT # 3.03 (1.56-6.13); NEUT % 63.6 % (34.0-71.1); RED CELL DISTRIBUTION WIDTH 16.9 % (11.6-14.4)
[2025-06-06 20:13] LABS: MONO % 18.3 % (4.7-12.5)
[2025-06-07] VITALS (7 sets, daily range): BP systolic 90–98; BP diastolic 56–66; O2SAT 90–99
[2025-06-07] MEDS ORDERED: fentaNYL 50 MCG PATCH.TD72 TD SCH (20:00)
[2025-06-08] VITALS (7 sets, daily range): BP systolic 90–102; BP diastolic 58–71; O2SAT 90–96
[2025-06-09 01:09] VITALS: BP 100/67; O2SAT 99
[2025-06-09 09:29] VITALS: BP 95/65; O2SAT 95
[2025-06-09 17:52] VITALS: BP 100/62
== END 2025-06-09 17:52 | disposition home or self-care (01) | DRG 598 ==
LOC: ER 11:32 → MEDI 18:30 → MEDJ 06-06 11:26
PROVIDERS: Emergency Medicine; General Practice; Internal Medicine Hematology & Oncology; Radiology Vascular & Interventional Radiology; ADMIT Internal Medicine; ATTEND Internal Medicine
PROC: 3E0F7SF Introduction of Other Gas into Respiratory Tract, Via Natural or Artificial Opening (ICD-10-PCS; 2025-05-30)
PROC: 3E0F7GC Introduction of Other Therapeutic Substance into Respiratory Tract, Via Natural or Artificial Opening (ICD-10-PCS; 2025-05-30)
PROC: 4A12X4Z Monitoring of Cardiac Electrical Activity, External Approach (ICD-10-PCS; 2025-05-30)
PROC: 5A0945A Assistance with Respiratory Ventilation, 24-96 Consecutive Hours, High Flow/Velocity Cannula (ICD-10-PCS; 2025-05-30)
PROC: BB24ZZZ Computerized Tomography (CT Scan) of Bilateral Lungs (ICD-10-PCS; 2025-05-31)
PROC: 0W9930Z Drainage of Right Pleural Cavity with Drainage Device, Percutaneous Approach (ICD-10-PCS; principal; 2025-06-01 18:00)
PROC: 8E0ZXY6 Isolation (ICD-10-PCS; 2025-06-06)
DX: C50.911 Malignant neoplasm of unspecified site of right female breast (principal); C78.7 Secondary malignant neoplasm of liver and intrahepatic bile duct; C79.89 Secondary malignant neoplasm of other specified sites; J91.0 Malignant pleural effusion; S21.001S Unspecified open wound of right breast, sequela; D50.0 Iron deficiency anemia secondary to blood loss (chronic); R06.03 Acute respiratory distress; M79.603 Pain in arm, unspecified; I10 Essential (primary) hypertension

== ENCOUNTER 2025-06-22 23:33 | Inpatient (IN) | payer OTHER ==
[~2025-06-22] VITALS: Ht 162.6 cm; Wt 743.9 kg
[2025-06-23] MEDS ORDERED: IPRATROPIUM/ALBUTEROL SULFATE 3 ML AMPUL.NEB IH SCH (01:11)
[2025-06-23] MEDS ORDERED: 0.9 % SODIUM CHLORIDE 1,000 ML IV STA (01:15)
[2025-06-23] MEDS ORDERED: IPRATROPIUM BROMIDE 0.5 MG/2.5 ML AMPUL.NEB IH ONE (01:20)
[2025-06-23 01:42] LABS: ABG PH 7.418 (7.35-7.45); ABG PO2 141.2 mmHg (80-100); BICARBONATE 23.6 mmol/l (23-25)
[2025-06-23 02:12] LABS: BASO % 0.1 % (0.1-1.2); EOS # 0.06 (0.04-0.54); EOS % 0.6 % (0.7-7.0); LYMPH # 0.88 (1.18-3.74); LYMPH % 8.8 % (19.3-53.1); MEAN PLATELET VOLUME 9.10 fl (9.4-12.4); MONO # 1.09 (0.24-0.82); MONO % 11.0 % (4.7-12.5); NEUT # 7.84 (1.56-6.13); NEUT % 78.8 % (34.0-71.1); RED CELL DISTRIBUTION WIDTH 15.6 % (11.6-14.4)
[2025-06-23 02:22] LABS: INR 1.11
[2025-06-23 02:43] LABS: ALT/SGPT 67.0 U/L (12-78); AST/SGOT 220.0 U/L (15-37); BILIRUBIN TOTAL 1.06 mg/dL (0.3-1.2); BUN CREA RATIO 66.0 (7.0-25.0); CREATININE SERUM 0.98 mg/dL (0.55-1.02); GFR 54.89; GLOBULINA 3.7 G/DL (2.4-3.5); GLUCOSE FASTING 79.0 mg/dL (65-100); OSMOLALITY SERUM 286.0 MOSM/KG (275-295)
[2025-06-23 02:46] LABS: o2 32 %
[2025-06-23] MEDS ORDERED: IPRATROPIUM/ALBUTEROL SULFATE 3 ML AMPUL.NEB IH ONE ×2 (02:54→08:42)
[2025-06-23 03:16] LABS: D DIMER > 35.20 MG/L
[2025-06-23] MEDS ORDERED: PANTOPRAZOLE SODIUM 40 MG/VIAL VIAL IV SCH (17:40)
[2025-06-23] MEDS ORDERED: ONDANSETRON HCL 4 MG in 0.9 % SODIUM CHLORIDE 50 ML IV PRN (17:45)
[2025-06-23] MEDS ORDERED: NITROGLYCERIN IN 5 % DEXTROSE 250 ML IV SCH (17:45)
[2025-06-23] MEDS ORDERED: ACETAMINOPHEN 500 MG GEL..CAP PO PRN (17:45)
[2025-06-23] MEDS ORDERED: NITROGLYCERIN IN 5 % DEXTROSE 50 MG/250 ML BOTTLE IV ONE (18:11)
[2025-06-23 21:51] LABS: URINE APPEARANCE Turbid; URINE BILIRRUBIN Moderate (NEGATIVE); URINE BLOOD Large; URINE COLOR Dark Yellow; URINE GLUCOSE Negative (NEGATIVE); URINE KETONE Negative (NEGATIVE); URINE LEUKOCYTE Moderate; URINE NITRATE Positive; URINE UROBILINOGEN 1.0 E.U./dl
[2025-06-23 22:19] LABS: URINE PROTEIN 100 (NEGATIVE)
[2025-06-23 22:20] LABS: URINE CRYSTALS FEW /HPF; URINE YEAST FEW /hpf
[2025-06-23 22:23] LABS: URINE WBC LOADED /hpf
[2025-06-23] MEDS ORDERED: NOREPINEPHRINE BITARTRATE 8 MG IV SCH (23:00)
[2025-06-23] MEDS ORDERED: NOREPINEPHRINE BITARTRATE 1 MG/ML AMPUL IV ONE (23:01)
[2025-06-24] VITALS (14 sets, daily range): BP systolic 96–125; BP diastolic 46–86; O2SAT 97–100
[2025-06-24] MEDS ORDERED: NOREPINEPHRINE BITARTRATE 8 MG in DEXTROSE 5 % IN WATER 250 ML IV SCH (04:00)
[2025-06-24] MEDS ORDERED: NOREPINEPHRINE BITARTRATE 1 MG/ML AMPUL IV ONE (04:46)
[2025-06-24] MEDS ORDERED: MORPHINE SULFATE 2 MG/ML CARTRIDGE IV PRN (11:15)
[2025-06-25] VITALS (18 sets, daily range): BP systolic 90–149; BP diastolic 50–81; O2SAT 95–100
[2025-06-25 06:06] LABS: BASO % 0.1 % (0.1-1.2); EOS # 0.01 (0.04-0.54); EOS % 0.1 % (0.7-7.0); LYMPH # 0.86 (1.18-3.74); LYMPH % 4.3 % (19.3-53.1); MEAN PLATELET VOLUME 9.00 fl (9.4-12.4); MONO # 1.18 (0.24-0.82); MONO % 5.9 % (4.7-12.5); NEUT # 17.71 (1.56-6.13); NEUT % 88.8 % (34.0-71.1); RED CELL DISTRIBUTION WIDTH 15.5 % (11.6-14.4)
[2025-06-25 06:19] LABS: BUN CREA RATIO 50.0 (7.0-25.0); CREATININE SERUM 1.73 mg/dL (0.55-1.02); GFR 28.49; GLUCOSE FASTING 110.0 mg/dL (65-100); OSMOLALITY SERUM 291.0 MOSM/KG (275-295)
[2025-06-25] MEDS ORDERED: ENOXAPARIN SODIUM 40 MG/0.4 ML SYRINGE SUBCUTANEO SCH (09:00)
[2025-06-25] MEDS ORDERED: 0.9 % SODIUM CHLORIDE 1,000 ML IV SCH (10:15)
[2025-06-25] MEDS ORDERED: CEFTRIAXONE SODIUM 2,000 MG in 0.9 % SODIUM CHLORIDE 100 ML IV SCH (12:00)
[2025-06-25] MEDS ORDERED: PIPERACILLIN/TAZOBACTAM SODIUM 3.375 GM in 0.9 % SODIUM CHLORIDE 100 ML IV SCH (12:00)
[2025-06-26] VITALS (13 sets, daily range): BP systolic 111–122; BP diastolic 66–77; O2SAT 95–100
[2025-06-26] MEDS ORDERED: CEFEPIME HCL 2,000 MG VIAL IV SCH (09:00)
[2025-06-26] MEDS ORDERED: LINEZOLID IN DEXTROSE 5% 300 ML IV NR (12:00)
[2025-06-26] MEDS ORDERED: MEROPENEM 1,000 MG in 0.9 % SODIUM CHLORIDE 100 ML IV NR (12:15)
[2025-06-26 16:36] LABS: BASO % 0.1 % (0.1-1.2); EOS # 0.04 (0.04-0.54); EOS % 0.2 % (0.7-7.0); LYMPH # 0.91 (1.18-3.74); LYMPH % 5.2 % (19.3-53.1); MEAN PLATELET VOLUME 9.10 fl (9.4-12.4); MONO # 0.99 (0.24-0.82); MONO % 5.7 % (4.7-12.5); NEUT # 15.35 (1.56-6.13); NEUT % 87.8 % (34.0-71.1); RED CELL DISTRIBUTION WIDTH 15.7 % (11.6-14.4)
[2025-06-26 17:00] LABS: BUN CREA RATIO 48.0 (7.0-25.0); CREATININE SERUM 1.59 mg/dL (0.55-1.02); GFR 31.4; OSMOLALITY SERUM 287.0 MOSM/KG (275-295)
[2025-06-26 17:04] LABS: GLUCOSE FASTING 290.0 mg/dL (65-100)
[2025-06-26] MEDS ORDERED: MORPHINE SULFATE 4 MG/ML VIAL IV PRN (19:15)
[2025-06-26] MEDS ORDERED: MEROPENEM 1,000 MG in 0.9 % SODIUM CHLORIDE 100 ML IV SCH (21:00)
[2025-06-26] MEDS ORDERED: LINEZOLID IN DEXTROSE 5% 300 ML IV SCH (21:00)
[2025-06-27] VITALS (20 sets, daily range): BP systolic 100–137; BP diastolic 63–87; O2SAT 95–98
[2025-06-27 05:36] LABS: ALT/SGPT 142.0 U/L (12-78); AST/SGOT 629.0 U/L (15-37); BILIRUBIN TOTAL 1.13 mg/dL (0.3-1.2); BUN CREA RATIO 52.0 (7.0-25.0); CREATININE SERUM 1.44 mg/dL (0.55-1.02); GFR 35.2; GLOBULINA 4.1 G/DL (2.4-3.5); GLUCOSE FASTING 127.0 mg/dL (65-100); OSMOLALITY SERUM 283.0 MOSM/KG (275-295)
[2025-06-27] MEDS ORDERED: LACTOBACILLUS ACIDOPHILUS 1 CAP CAP PO SCH (13:00)
[2025-06-27] MEDS ORDERED: MIDODRINE HCL 5 MG TABLET PO SCH (13:00)
[2025-06-28] VITALS (20 sets, daily range): BP systolic 105–140; BP diastolic 63–88; O2SAT 93–98
[2025-06-28] MEDS ORDERED: AA 4.25%/CAL/LYTES/DEXT 5% 1,000 ML PERIFERAL SCH (17:00)
[2025-06-28] MEDS ORDERED: FAT EMULSIONS 250 ML IV SCH (21:00)
[2025-06-28] MEDS ORDERED: MORPHINE SULFATE 4 MG/ML VIAL IV PRN (21:15)
[2025-06-29] VITALS (15 sets, daily range): BP systolic 106–144; BP diastolic 59–88; O2SAT 90–96
[2025-06-29] MEDS ORDERED: NOREPINEPHRINE BITARTRATE 1 MG/ML AMPUL IV ONE (23:51)
[2025-06-30] VITALS (11 sets, daily range): BP systolic 90–135; BP diastolic 53–83; O2SAT 94–97
[2025-06-30 18:26] LABS: BASO % 0.4 % (0.1-1.2); EOS # 0.05 (0.04-0.54); EOS % 0.2 % (0.7-7.0); LYMPH # 0.94 (1.18-3.74); LYMPH % 3.5 % (19.3-53.1); MEAN PLATELET VOLUME 9.90 fl (9.4-12.4); MONO # 1.26 (0.24-0.82); MONO % 4.6 % (4.7-12.5); NEUT # 23.62 (1.56-6.13); NEUT % 86.8 % (34.0-71.1); RED CELL DISTRIBUTION WIDTH 16.0 % (11.6-14.4)
[2025-06-30 18:39] LABS: INR 1.13
[2025-06-30 18:56] LABS: LYMPHOCYTE MAN 3.0 %; METAMYELOCYTE 4.0 %; MONOCYTE MAN 2.0 %; MYELOCYTE 2.0 %; NEUTROPHILS MAN 89.0 %
[2025-06-30 19:26] LABS: GLUCOSE FASTING 114.0 mg/dL (65-100)
[2025-06-30 19:27] LABS: BUN CREA RATIO 71.0 (7.0-25.0); CHOL HDL RATIO 4.9 (0-5.0); CREATININE SERUM 1.14 mg/dL (0.55-1.02); GFR 46.1; HDL 21.0 mg/dl (40-60); LDL 60.0 mg/dl (0-130); OSMOLALITY SERUM 275.0 MOSM/KG (275-295); VLDL 21.0 (0-39)
[2025-06-30 19:28] LABS: ALT/SGPT 157.0 U/L (12-78); AST/SGOT 519.0 U/L (15-37); BILIRUBIN TOTAL 0.92 mg/dL (0.3-1.2); GLOBULINA 3.7 G/DL (2.4-3.5)
== END 2025-06-30 19:22 | disposition expired | DRG 872 ==
LOC: ER 23:33 → MEDI 06-23 18:00 → ICU-2 06-23 18:00 → MEDI 06-25 11:58
PROVIDERS: General Practice; Internal Medicine; Student in an Organized Health Care Education/Training Program; ADMIT Internal Medicine; ATTEND Internal Medicine
PROC: BW24ZZZ Computerized Tomography (CT Scan) of Chest and Abdomen (ICD-10-PCS; 2025-06-23)
PROC: 4A12X4Z Monitoring of Cardiac Electrical Activity, External Approach (ICD-10-PCS; 2025-06-25)
PROC: 02HV33Z Insertion of Infusion Device into Superior Vena Cava, Percutaneous Approach (ICD-10-PCS; 2025-06-26)
PROC: 0W9B3ZZ Drainage of Left Pleural Cavity, Percutaneous Approach (ICD-10-PCS; principal; 2025-06-28)
DX: R65.21 Severe sepsis with septic shock (principal); E87.1 Hypo-osmolality and hyponatremia; J90 Pleural effusion, not elsewhere classified; N39.0 Urinary tract infection, site not specified; N17.9 Acute kidney failure, unspecified; I50.9 Heart failure, unspecified; T85.9XXA Unspecified complication of internal prosthetic device, implant and graft, initial encounter; D72.829 Elevated white blood cell count, unspecified; Y65.8 Other specified misadventures during surgical and medical care; Z85.3 Personal history of malignant neoplasm of breast; R06.00 Dyspnea, unspecified